=== PATIENT | male | born 1960 | race Caucasian/White ===

== ENCOUNTER → 2016-09-09 | Outpatient (REF) | payer BC | LOC: M LAB REF 12:14 | PROVIDERS: ATTEND Physician Assistant Medical | DX: J02.9 Acute pharyngitis, unspecified (principal) ==

== ENCOUNTER 2017-04-28 09:44 | Inpatient (IN) | payer BC ==
[2017-04-28] VITALS (7 sets, daily range): BP systolic 90–103; BP diastolic 51–55
[2017-04-28] MEDS ORDERED: LORazepam 2 MG/ML VIAL (J2060) IV STA ×2 (09:54→15:22)
[2017-04-28] MEDS ORDERED: NS 1,000 ML IV ONE ×3 (10:00→12:00)
[2017-04-28 10:33] LABS: BASO # 0.1 10^3/uL (0.0-0.2); BASO % 0.4 % (0.0-1.0); EOS # 0.1 10^3/uL (0.0-0.50); EOS % 0.4 % (0.0-3.0); IMMATURE GRANULOCYTE % 2.1 % (0-0); LYMPH # 2.2 10^3/uL (1.5-4.5); LYMPH % 11.4 % (24.0-44.0); MEAN CORPUSCULAR HEMOGLOBIN 32.3 pg (27.0-33.0); MEAN CORPUSCULAR HGB CONC 28.5 g/dl (32.0-36.5); MEAN CORPUSCULAR VOLUME 113.3 fl (80.0-96.0); MONO # 1.1 10^3/uL (0.0-0.8); MONO % 5.8 % (0.0-5.0); NEUTROPHILS # 15.3 10^3/uL (1.8-7.7); NEUTROPHILS % 79.9 % (36.0-66.0); PLATELET COUNT, AUTOMATED 237 10^3/uL (150-450); RED CELL DISTRIBUTION WIDTH 12.2 % (11.5-14.5); WHITE BLOOD COUNT 19.1 10^3/uL (4.0-10.0)
[2017-04-28 10:38] LABS: ABG BASE EXCESS -28.4 (-2.0-2.0); ABG HCO3 2.9 MEQ/L (22.0-26.0); ABG PARTIAL PRESSURE O2 123.8 mmHg (75.0-100.0); ABG STANDARD HCO3 5.6 MEQ/L (22.0-26.0); ABG TOTAL CO2 3.3 MEQ/L (22.0-29.0)
[2017-04-28 10:43] LABS: VENOUS BASE EXCESS -29.7 (-2.0-2.0); VENOUS O2 SATURATION 76.2 % (60.0-80.0); VENOUS PARTIAL PRESSURE CO2 34.1 mmHg (38.0-50.0); VENOUS PARTIAL PRESSURE O2 55.9 mmHg (30.0-50.0); VENOUS STANDARD HCO3 4.8 MEQ/L
[2017-04-28 10:44] LABS: ABG PARTIAL PRESSURE CO2 14.6 mmHg (35.0-45.0); ABG pH (ARTERIAL) 6.913 UNITS (7.350-7.450)
[2017-04-28] MEDS ORDERED: INSULIN IV RATE CHANGE DOCUMENTATION ML/HR XX SCH (11:00)
[2017-04-28] MEDS ORDERED: HumuLIN R (REGULAR) INSULIN (NovoLIN R) **100U/ML** PER UNIT IV ONE (11:00)
[2017-04-28] MEDS: INSULIN HUMAN REGULAR 100 UNITS in NS 99 ML IV SCH ×2 (11:03→21:34)
[2017-04-28 11:09] LABS: ALBUMIN 3.2 GM/DL (3.2-5.2); ALKALINE PHOSPHATASE 108 U/L (45-117); ALT/SGPT 21 U/L (12-78); ANION GAP 34 MEQ/L (8-16); AST/SGOT 24 U/L (7-37); BILIRUBIN,DIRECT 0.1 MG/DL (0.0-0.2); BILIRUBIN,TOTAL 0.4 MG/DL (0.2-1.0); BLOOD UREA NITROGEN 49 MG/DL (7-18); CALCIUM LEVEL 8.2 MG/DL (8.5-10.1); CARBON DIOXIDE LEVEL 7 MEQ/L (21-32); CHLORIDE LEVEL 82 MEQ/L (98-107); CREATININE FOR GFR 3.04 MG/DL (0.70-1.30); GLOMERULAR FILTRATION RATE 22.8 (>56); SODIUM LEVEL 123 MEQ/L (136-145); TOTAL PROTEIN 6.1 GM/DL (6.4-8.2)
[2017-04-28] MEDS ORDERED: METAL LOCK LOOP XX ONE (11:16)
[2017-04-28 11:21] LABS: METHADONE URINE NEGATIVE (NEGATIVE)
--- NOTE | 2017-04-28 11:29 | REP ---
AP PORTABLE CHEST: 04/28/2017. Clinical history: Altered mental status. Comparison: CXR 09/24/2012, portable chest 09/09/2012. Findings: Lungs are hypoinflated. There is crowded markings in the bases with atelectasis and/or patchy infiltrates. Effusions are difficult to exclude. The heart size is magnified by low level of inflation and portable technique. Vascular engorgement may be magnified by portable technique. Venous hypertension difficult to exclude. Airway and aorta grossly intact. Bones intact. No free air. Impression: 1. Hypoinflated chest with bibasilar atelectasis or patchy infiltrates. Small effusion is not excluded. The low level of inflation magnifies heart size and crowds markings and vessels. No pedro edema. Signed by Antoni Skinner MD 04/28/2017 01:11 P
[2017-04-28 11:41] LABS: GLUCOSE, FASTING 1130 MG/DL (70-105); POTASSIUM SERUM 6.9 MEQ/L (3.5-5.1)
[2017-04-28] MEDS ORDERED: INSUHUMDS SC (11:47)
[2017-04-28] MEDS ORDERED: PATIENT COMMENT (11:49)
--- NOTE | 2017-04-28 11:53 | REP ---
CT Head without contrast HISTORY: Altered mental status COMPARISON: MR 09/09/2012 There is no intraparenchymal hemorrhage, acute infarct, mass or midline shift. The ventricular system and cortical sulci are dilated consistent with minimal volume loss. There is no extra cerebral collection. There is no fracture. Mucosal thickening is present in the ethmoid sinuses. IMPRESSION: Minimal volume loss. Signed by Davey Gomez MD 04/28/2017 11:45 A
[2017-04-28] MEDS ORDERED: CALCIUM CHLORIDE 10% 1 GM in D5W 100 ML IV ONE (12:00)
[2017-04-28] MEDS ORDERED: DILUENT IV ONE (12:30)
[2017-04-28] MEDS ORDERED: NS IV ONE (12:30)
[2017-04-28] MEDS ORDERED: CEFEPIME HCL 2 GM in D5W 50 ML IV ONE (12:30)
[2017-04-28] MEDS: NS 1,000 ML IV SCH ×2 (12:40→17:47)
[2017-04-28 13:07] LABS: AMYLASE 25 U/L (25-115)
[2017-04-28] MEDS: HEPARIN SOD (PORCINE) 5000 UNITS/ML VIAL SC SCH ×2 (14:00→21:33)
[2017-04-28 14:27] LABS: INR 1.33
[2017-04-28 14:37] LABS: CALCIUM LEVEL 10.5 MG/DL (8.5-10.1); CREATININE FOR GFR 3.16 MG/DL (0.70-1.30); GLOMERULAR FILTRATION RATE 21.8 (>56); PHOSPHORUS LEVEL 8.5 MG/DL (2.5-4.9)
[2017-04-28 14:38] LABS: POTASSIUM SERUM 5.3 MEQ/L (3.5-5.1)
[2017-04-28 14:51] LABS: ABG BASE EXCESS -24.7 (-2.0-2.0); ABG HCO3 4.8 MEQ/L (22.0-26.0); ABG STANDARD HCO3 7.2 MEQ/L (22.0-26.0); ABG TOTAL CO2 5.4 MEQ/L (22.0-29.0)
[2017-04-28 14:53] LABS: ABG pH (ARTERIAL) 7.015 UNITS (7.350-7.450)
[2017-04-28 14:54] LABS: ABG PARTIAL PRESSURE CO2 19.1 mmHg (35.0-45.0)
[2017-04-28] MEDS: INSULIN IV RATE CHANGE DOCUMENTATION ML/HR XX SCH ×4 (15:00→23:24)
[2017-04-28] MEDS: PIPERACILLIN/TAZOBACTAM SOD 3.375 GM in D5W 50 ML IV SCH ×2 (15:43→23:59)
[2017-04-28 16:11] LABS: CREATININE FOR GFR 2.9 MG/DL (0.70-1.30); GLOMERULAR FILTRATION RATE 24.1 (>56); POTASSIUM SERUM 4.9 MEQ/L (3.5-5.1)
--- NOTE | 2017-04-28 16:15 | REP ---
AP PORTABLE CHEST: 04/28/2017 at 02:43 PM. Clinical history: Central line placement. Findings: There is now a right jugular central venous catheter with tip in the SVC. Lungs are hypoinflated. Heart is enlarged. There is vascular congestion. No abnormal widening of the mediastinum. Compared to the earlier study today, there is better inflation and less basilar crowding of markings and atelectasis. Signed by Antoni Skinner MD 04/28/2017 05:05 P
[2017-04-28 16:30] LABS: CALCIUM LEVEL 7.7 MG/DL (8.5-10.1)
--- NOTE | 2017-04-28 16:45 | HPE ---
DATE OF ADMISSION: 04/28/2017 This is a patient of unknown primary provider. SUBSTANCE ABUSE RN: Dr. Fatimah Baker REASON FOR PRESENTATION: Not acting normally. The history is obtained from his girlfriend, Freda, and his mother, Santo, who are at bedside this morning. The patient was last seen by his mother on Thursday. He was acting normally in [employer]. He was texting with his girlfriend on Thursday evening. On Thursday, he stayed home from work but he did not let his girlfriend know why. Later in the day, his girlfriend was texting him without reply. At around 10:00 p.m. last evening, Freda, his girlfriend went to visit him and found him on the kitchen floor. He was moaning. He recognized his girlfriend. She helped him up off the floor, got him a drink of water, helped him walk into the living room, to the bathroom after the second drink of water and vomited. He came back and laid on the couch. He was rolling back and forth. He felt as though he had to use the bathroom but was unable to successfully get to the bathroom. She asked if he wanted to go upstairs and he said no. Freda went to feed the cats and then he made his way upstairs and was laying on the bed. Sometime between 4:30 and 5:00 on Thursday which is today 04/28/2017, he started groaning. He had grunting respirations. He said he was breathing worse and he wanted to go to the bathroom. He eventually relented and he came to the hospital as the patient did not want to seek medical assistance. He did vomit once over the course of the evening. He has had a small cough. He had no diarrhea. He did not complain of any pain or chest pain. Review of systems is not meaningfully obtainable at this point. We do not know his current medications, although he is on an insulin pump. PAST MEDICAL HISTORY: Obtained from the electronic medical record which includes: 1. Type 1 diabetes. 2. Triglycerides. 3. Goiter. 4. Hiatal hernia. 5. History of cardiac catheterization in 2004 which was within normal limits. 6. Vitamin D deficiency. 7. 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 8. He had endoscopic sinus surgery with Dr. Ford most likely related to that mass. 9. Hypertension. ALLERGIES: No known drug allergies as of May of 2016. PAST SURGICAL HISTORY: Notable for: 1. Cardiac catheterization. 2. Esophagogastroduodenoscopy (EGD). 3. Bilateral endoscopic maxillary surgery. 4. Endoscopic right frontal sinusotomy using balloon. 5. Sinuplasty. FAMILY HISTORY: Father is with a history of diabetes and myocardial infarction. Mother is alive with skin cancer. SOCIAL HISTORY: He is a former smoker. He does use alcohol. 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 PHYSICAL EXAMINATION: Blood pressure systolic has been as low as 82, most recently is 109 on my examination. Most recent totally recorded blood pressure in the computer is 93/42. Heart rate is 100, respiratory rate is 24. He is moving all four extremities. He is not following commands. Pupils are equally round and reactive, anicteric, noninjected. Nasal septum is midline. He does not open his mouth. Sinuses are nontender. Neck is supple. No cervical or supraclavicular adenopathy. Breathing is symmetrical, diminished throughout. I:E ratio is 1:3. Radial pulses are 2+, capillary refill is two seconds. His extremities are cool, feet greater than hands. He was initially hypothermic. Temperature 93.6. There is no recent temperature recorded in the computer but he is warm to touch on the core. He has a Cordova catheter in place. Abdomen is soft, doughy, nontender. There is no lower extremity edema. LABORATORY DATA: Urine cultures pending. Blood cultures pending. White cell count 19.1, hemoglobin 12.9, platelets 237, 79% neutrophils. Sodium is 123, potassium 6.9, chloride 82, carbon dioxide is 7, anion gap is 34, BUN is 49, creatinine 3.04, fasting glucose is 1130, lactic acid is 6.3, CK is 633, troponin I is 0.2, total protein 6.1, TSH 1.49. UA is negative nitrite, negative leukocyte esterase, 1 white cell, 3+ glucose, 1+ ketones, 2+ blood. Toxicology screen is notable for a salicylate level of 4.5, Tylenol level 3.9, alcohol level undetectably low, other toxicology screen thus far negative. Chest x-ray shows hypoinflation with bibasilar atelectasis or patchy infiltrates. Head CT shows minimal volume loss. EKG shows right bundle branch block and atrial fibrillation with rapid ventricular response. ASSESSMENT: This is a 57-year-old with diabetic ketoacidosis who will require intensive care unit (ICU) care and at least a two midnight hospital stay. PLAN: 1. Endocrine. The patient has been started on an insulin drip. He has received between two and three liters of fluid in the form of normal saline at this point. Blood pressure is trending upwards slightly. We will follow serial basic metabolic panels (BMPs) and adjust his insulin drip with every one hour fingersticks. We will continue with normal saline at this point. We will transition to D5 half normal as fingerstick allows. We will need to follow his potassium which is currently elevated but will likely trend downward. He has received calcium already. We will check a phosphate level. His hyponatremia is likely pseudohyponatremia. Underlying infectious etiology is considered and Zosyn has been ordered empirically. The patient has a profound acidosis and could potentially receive bicarbonate, although at this point he has been partially resuscitated. It would be reasonable to recheck an arterial blood gas (ABG) to further guide our process. 2. The patient has acute renal failure and rhabdomyolysis, most likely from being found down and in the setting of dehydration for diabetic ketoacidosis (DKA). We will monitor his renal function. No role for nephrology consultation at this point but we may need a paper tube cutter if he does not improve. 3. The patient has elevated troponin, again most likely related from his extreme metabolic situation. He does also have right bundle branch block and new onset atrial fibrillation. There is no role for anticoagulation at this time and we will treat the underlying illness and cycle troponins. 4. Deep vein thrombosis (DVT) and gastrointestinal (GI) prophylaxis are ordered for this patient. 5. The patient has metabolic encephalopathy, most likely related to his metabolic derangement.
[2017-04-28 17:01] LABS: CALCIUM LEVEL 7.8 MG/DL (8.5-10.1); CREATININE FOR GFR 2.89 MG/DL (0.70-1.30); GLOMERULAR FILTRATION RATE 24.2 (>56); POTASSIUM SERUM 5.1 MEQ/L (3.5-5.1)
[2017-04-28 19:24] LABS: CALCIUM LEVEL 7.9 MG/DL (8.5-10.1); CREATININE FOR GFR 2.73 MG/DL (0.70-1.30); GLOMERULAR FILTRATION RATE 25.8 (>56); POTASSIUM SERUM 4.5 MEQ/L (3.5-5.1)
--- NOTE | 2017-04-28 21:23 | RO ---
DATE OF PROCEDURE: 04/28/2017 PREPROCEDURE DIAGNOSES: Diabetic ketoacidosis (DKA). Poor venous access. Hypotension. POSTPROCEDURE DIAGNOSES: Hypotension. DKA. Poor venous access. OPERATIVE PROCEDURE: tripple lumen centra line right IJ SURGEON: Neha Carrasco MD BROOM MACHINE OPERATOR: Danay Yancey DO, registered nurse Clarissa. SEDATION: 2 mg of IV Ativan was given. ANESTHESIA: 1% local lidocaine. ESTIMATED BLOOD LOSS: 10 mL VENTILATION: None. DESCRIPTION OF PROCEDURE: Risks were discussed with the patient's family. The patient was altered and consent was obtained from family. Time out was done. Patient was placed in supine position and site was cleaned with Chloraprep. The patient was covered in a sterile manner. Ultrasound probe with sterile probe cover was used. The patient's right internal jugular was located. Subcutaneous lidocaine was injected. Subsequently, needle was inserted with ultrasound guidance. Flash of blood was obtained. Wire was threaded through the needle and needle was removed. Wire position was confirmed with ultrasound. Site was dilated and triple lumen central line was inserted via Seldinger technique over a guidewire. Guidewire was removed and all three ports of the central line were flushed with normal saline and clamped. Triple lumen central line was secured with clamps and stitches. Tegaderm dressing was placed. The patient tolerated the procedure with no complication. X-ray was ordered for confirmation. THOMAS
[2017-04-28 21:26] LABS: CALCIUM LEVEL 7.8 MG/DL (8.5-10.1); CREATININE FOR GFR 2.49 MG/DL (0.70-1.30); GLOMERULAR FILTRATION RATE 28.7 (>56); POTASSIUM SERUM 4.6 MEQ/L (3.5-5.1)
[2017-04-28] MEDS: PANTOPRAZOLE 40MG INJ (PROTONIX) (C9113) IV SCH (21:32)
[2017-04-28] MEDS ORDERED: INSULIN HUMAN REGULAR 100 UNITS in NS 99 ML IV SCH ×5 (23:00)
[2017-04-29] VITALS (19 sets, daily range): BP systolic 84–114; BP diastolic 44–71
[2017-04-29 00:22] LABS: CALCIUM LEVEL 7.6 MG/DL (8.5-10.1); CREATININE FOR GFR 2.41 MG/DL (0.70-1.30); GLOMERULAR FILTRATION RATE 29.8 (>56); POTASSIUM SERUM 4.4 MEQ/L (3.5-5.1)
[2017-04-29 01:46] LABS: CALCIUM LEVEL 7.6 MG/DL (8.5-10.1); CREATININE FOR GFR 2.31 MG/DL (0.70-1.30); GLOMERULAR FILTRATION RATE 31.3 (>56); POTASSIUM SERUM 4.6 MEQ/L (3.5-5.1)
[2017-04-29] MEDS: NS 1,000 ML IV SCH (02:07)
[2017-04-29 03:51] LABS: CALCIUM LEVEL 7.7 MG/DL (8.5-10.1); CREATININE FOR GFR 2.28 MG/DL (0.70-1.30); GLOMERULAR FILTRATION RATE 31.8 (>56); POTASSIUM SERUM 4.7 MEQ/L (3.5-5.1)
[2017-04-29 05:10] LABS: MEAN CORPUSCULAR HEMOGLOBIN 32.6 pg (27.0-33.0); MEAN CORPUSCULAR HGB CONC 35.1 g/dl (32.0-36.5); MEAN CORPUSCULAR VOLUME 92.8 fl (80.0-96.0); RED CELL DISTRIBUTION WIDTH 11.9 % (11.5-14.5); WHITE BLOOD COUNT 7.3 10^3/uL (4.0-10.0)
[2017-04-29 05:33] LABS: ALBUMIN 2.4 GM/DL (3.2-5.2); BILIRUBIN,TOTAL 0.4 MG/DL (0.2-1.0); CALCIUM LEVEL 7.6 MG/DL (8.5-10.1); CREATININE FOR GFR 2.16 MG/DL (0.70-1.30); GLOMERULAR FILTRATION RATE 33.8 (>56); MAGNESIUM LEVEL 2.3 MG/DL (1.8-2.4); POTASSIUM SERUM 4.6 MEQ/L (3.5-5.1); TOTAL PROTEIN 4.8 GM/DL (6.4-8.2)
[2017-04-29 05:36] LABS: ADD MANUAL DIFFER YES; DIFF SLIDE NUMBER 92; LEFT SHIFT POS FLAG; PLATELET COUNT, AUTOMATED 106 10^3/uL (150-450); POSITIVE MORPH POS FLAG
[2017-04-29] MEDS: HEPARIN SOD (PORCINE) 5000 UNITS/ML VIAL SC SCH (06:00)
[2017-04-29 07:46] LABS: CALCIUM LEVEL 7.7 MG/DL (8.5-10.1); CREATININE FOR GFR 2.03 MG/DL (0.70-1.30); GLOMERULAR FILTRATION RATE 36.3 (>56); POTASSIUM SERUM 4.5 MEQ/L (3.5-5.1)
--- NOTE | 2017-04-29 08:25 | IPNPDOC ---
Subjective Date Seen The patient was seen on 04/29/17. Subjective Chief Complaint/HPI The patient is a 57-year-old male admitted with a reason for visit of Diabetic Ketoacidoses. Events since last encounter Girlfriend at bedside. Patient continues with minimal responsiveness, thrashing in bed, grunting. GF admits to patient having hx of heavy ETOH use: beer then proceeds to drinking wine and beer. GF unable to quantify amount of ETOH Consumed gilles a daily basis. States is a mostly daily drinker. Heavier drinking noted on the weekends. Also notes patient with ataxic gait, usually on the left side with tremor. Worse when fatigued. Unable to proceed with testing due to cost/insurance coverage. General: Reports: ROS Unobtainable Objective Physical Examination General Exam: Positive: Mild Distress, Other (diaphoretic, grunting, groaning) , Negative: Alert ENT Exam: Positive: Atraumatic, Mucous membr. moist/pink, Pharynx Normal Neck Exam: Positive: Supple, Negative: JVD, thyromegaly Chest Exam: Positive: Clear to auscultation, Normal air movement Heart Exam: Positive: Rate Normal, Regular Rhythm, Normal S1, Normal S2, Negative: Murmurs, Rubs Telemetry: Positive: No significant arrhythmia Abdomen Exam: Positive: Normal bowel sounds, Soft, Negative: Tenderness, Hepatospenomegaly Extremity Exam: Negative: Edema Skin Exam: Positive: Nl turgor and temperature, Negative: Rash, Breakdown Psych Exam: Negative: Oriented x 3 Assessment /Plan Problems (1) DKA (diabetic ketoacidoses) Status: Acute Response to Treatment: Improving Problem Text: Currently on Insulin drip. Blood sugar close to 200 range. Patient's mentation not improving. Concerning for other etiology. BMPs q 2 hrs. Anion Gap has normalized. (2) Metabolic encephalopathy Status: Acute Problem Text: related to DKA and potential alcoholic encephalopathy. Ammonia level and INR ordered. IV hydration with Thiamine and MVI. Unable to complete MRI due to patient's inability to follow commands. EEG ordered. (3) Alcohol abuse Status: Acute Problem Text: Thiamin and MVI IV ordered. Ativan prn agitation/withdrawal symptoms. CIWA protocol (4) Elevated troponin Status: Acute Problem Text: Troponin noted 2.45 over night. Repeat this am 2.1. Cardiology consulted. EKG completed this am Echo completed 04/28/17: EF 70% no valvular d/o. (5) Acute renal failure Status: Acute Problem Text: Creatinine improved to 2.0 this am. Urine output is adequate. (6) Tremor Problem Text: documented tremor disorder by Endocrinology in outpatient notes. Patients GF notes LEFT sided tremor and describes contracture. Also causes unsteady gait. worse when patient is fatigued. Will consider MRI when patient is able to proceed. Plan/VTE VTE Prophylaxis Ordered?: No (INR 1.33 on admission, HOLD on anti-coag until repeat INR TEDS/SCDs) VS, I&O, 24H, Fishbone Vital Signs/I&O Vital Signs Date Time Temp Pulse Resp B/P (MAP) Pulse Ox O2 Delivery O2 Flow Rate FiO2 04/29/17 04:00 98.7 101 18 91/55 (67) 97 Room Air Laboratory Data 24H LABS Laboratory Tests 2 04/28/17 09:51: Bedside Glucose (Misc Panel) > 600*H 04/28/17 10:04: Blood Gas Bicarbonate Standard 5.6L, Arterial Blood pH 6.913*L, Arterial Blood Partial Pressure CO2 14.6*L, Arterial Blood Partial Pressure O2 123.8H, Arterial Blood Total CO2 3.3L, Arterial Blood HCO3 2.9L, Arterial Blood Base Excess -28.4L, Arterial Blood Oxygen Saturation 97.6 04/28/17 10:26: Blood Gas Bicarbonate Standard 4.8, Immature Granulocyte % (Auto) 2.1H, White Blood Count 19.1H, Red Blood Count 3.99L, Hemoglobin 12.9L, Hematocrit 45.2, Mean Corpuscular Volume 113.3H, Mean Corpuscular Hemoglobin 32.3, Mean Corpuscular Hemoglobin Concent 28.5L, Red Cell Distribution Width 12.2, Platelet Count 237, Neutrophils (%) (Auto) 79.9H, Lymphocytes (%) (Auto) 11.4L, Monocytes (%) (Auto) 5.8H, Eosinophils (%) (Auto) 0.4, Basophils (%) (Auto) 0.4 , Neutrophils # (Auto) 15.3H, Lymphocytes # (Auto) 2.2, Monocytes # (Auto) 1.1H , Eosinophils # (Auto) 0.1, Basophils # (Auto) 0.1, Immature Granulocyte # (Auto ) 0.4H, Nucleated Red Blood Cells % (auto) 0.1H, Venous Blood pH 6.779L, Venous Blood Partial Pressure CO2 34.1L, Venous Blood Partial Pressure O2 55.9H, Venous Blood Total Carbon Dioxide 6.0L, Venous Blood HCO3 4.9L, Venous Blood Oxygen Saturation 76.2, Venous Blood Base Excess -29.7L, Anion Gap 34H, Glomerular Filtration Rate 22.8L, Estimated Mean Plasma Glucose 186H, Hemoglobin A1c 8.1, Calcium Level 8.2L, Aspartate Amino Transf (AST/SGOT) 24, Alanine Aminotransferase (ALT/SGPT) 21, Alkaline Phosphatase 108, Total Bilirubin 0.4, Direct Bilirubin 0.1, Total Creatine Kinase 633H, Creatine Kinase MB 16.2H, Creatine Kinase MB Relative Index 2.55, Troponin I 0.20H, C- Reactive Protein, Quantitative 6.72H, Total Protein 6.1L, Albumin 3.2, Albumin/ Globulin Ratio 1.10, Amylase Level 25, Thyroid Stimulating Hormone (TSH) 1.490, Salicylates Level 4.5L, Acetaminophen Level 3.9L, Ethyl Alcohol Level < 0.003 04/28/17 10:47: Urine Appearance CLEAR, Urine Color STRAW, Urine pH 5.0, Urine Specific [place] 1.017, Urine Protein NEGATIVE, Urine Glucose (UA) 3+H, Urine Ketones 1+H, Urine Urobilinogen 0.2, Urine Bilirubin NEGATIVE, Urine Leukocyte Esterase NEGATIVE, Urine Blood 2+H, Urine Nitrite NEGATIVE, Urine WBC (Auto) 1, Urine RBC (Auto) 0 , Urine Hyaline Casts (Auto) 1, Urine Bacteria (Auto) NEGATIVE, Urine Squamous Epithelial Cells 0, Urine Mucus (Auto) SMALL, Urine Sperm (Auto) , Urine Amphetamines Screen NEGATIVE, Urine Benzodiazepines Screen NEGATIVE, Urine Opiates Screen NEGATIVE, Urine Methadone Screen NEGATIVE, Urine Barbiturates Screen NEGATIVE, Urine Phencyclidine Screen NEGATIVE, Urine Cocaine Metabolite Screen NEGATIVE, Urine Cannabinoids Screen NEGATIVE 04/28/17 11:36: Lactic Acid Level 6.3*H 04/28/17 11:41: Bedside Glucose (Misc Panel) > 600*H 04/28/17 12:22: Bedside Glucose (Misc Panel) > 600*H 04/28/17 13:49: Bedside Glucose (Misc Panel) > 600*H 04/28/17 14:01: Anion Gap 28H, Glomerular Filtration Rate 21.8L, Blood Urea Nitrogen 51H, Creatinine 3.16H, Sodium Level 126L, Potassium Level 5.3H, Chloride Level 91L, Carbon Dioxide Level 7L, Calcium Level 10.5#H, Phosphorus Level 8.5H, Lipase 207 04/28/17 14:02: Prothrombin Time 16.7H, Prothromb Time International Ratio 1.33, Activated Partial Thromboplast Time 33.1, Osmolality 342H 04/28/17 14:39: Blood Gas Bicarbonate Standard 7.2L, Arterial Blood pH 7.015*L, Arterial Blood Partial Pressure CO2 19.1*L, Arterial Blood Partial Pressure O2 104.0H, Arterial Blood Total CO2 5.4L, Arterial Blood HCO3 4.8L, Arterial Blood Base Excess -24.7L, Arterial Blood Oxygen Saturation 97.0 04/28/17 15:28: Anion Gap 25H, Glomerular Filtration Rate 24.1L, Blood Urea Nitrogen 50H, Creatinine 2.90H, Sodium Level 130L, Potassium Level 4.9, Chloride Level 96L, Carbon Dioxide Level 9L, Calcium Level 7.7#L, Total Creatine Kinase 1246#H, Creatine Kinase MB 35.2H, Creatine Kinase MB Relative Index 2.82, Troponin I 0.41#H 04/28/17 15:29: Bedside Glucose (Misc Panel) 582*H 04/28/17 16:26: Anion Gap 23H, Glomerular Filtration Rate 24.2L, Blood Urea Nitrogen 51H, Creatinine 2.89H, Sodium Level 130L, Potassium Level 5.1, Chloride Level 97L, Carbon Dioxide Level 10L, Calcium Level 7.8L 04/28/17 17:21: Bedside Glucose (Misc Panel) 545*H 04/28/17 18:12: Bedside Glucose (Misc Panel) 517*H 04/28/17 18:51: Anion Gap 18H, Glomerular Filtration Rate 25.8L, Lactic Acid Level 2.0, Blood Urea Nitrogen 50H, Creatinine 2.73H, Sodium Level 133L, Potassium Level 4.5, Chloride Level 101, Carbon Dioxide Level 14L, Calcium Level 7.9L 04/28/17 19:25: Bedside Glucose (Misc Panel) 492H 04/28/17 20:19: Bedside Glucose (Misc Panel) 464H 04/28/17 20:53: Anion Gap 14, Glomerular Filtration Rate 28.7L, Blood Urea Nitrogen 48H, Creatinine 2.49H, Sodium Level 135L, Potassium Level 4.6, Chloride Level 103, Carbon Dioxide Level 18L, Calcium Level 7.8L 04/28/17 22:17: Bedside Glucose (Misc Panel) 352H 04/28/17 23:13: Anion Gap 10, Glomerular Filtration Rate 29.8L, Blood Urea Nitrogen 48H, Creatinine 2.41H, Sodium Level 136, Potassium Level 4.4, Chloride Level 106, Carbon Dioxide Level 20L, Calcium Level 7.6L, Total Creatine Kinase 1531H, Creatine Kinase MB 50.2H, Creatine Kinase MB Relative Index 3.27, Troponin I 2.54#*H 04/28/17 23:17: Bedside Glucose (Misc Panel) 289H 04/29/17 00:23: Bedside Glucose (Misc Panel) 287H 04/29/17 01:08: Bedside Glucose (Misc Panel) 288H, Anion Gap 10, Glomerular Filtration Rate 31.3L, Blood Urea Nitrogen 47H, Creatinine 2.31H, Sodium Level 137, Potassium Level 4.6, Chloride Level 106, Carbon Dioxide Level 21, Calcium Level 7.6L 04/29/17 02:03: Bedside Glucose (Misc Panel) 257H 04/29/17 03:07: Anion Gap 10, Glomerular Filtration Rate 31.8L, Blood Urea Nitrogen 48H, Creatinine 2.28H, Sodium Level 138, Potassium Level 4.7, Chloride Level 106, Carbon Dioxide Level 22, Calcium Level 7.7L 04/29/17 03:09: Bedside Glucose (Misc Panel) 272H 04/29/17 04:55: Nucleated Red Blood Cells % (auto) 0.0, Neutrophils 83H, Lymphocytes (Manual) 6L , Monocytes (Manual) 10H, Atypical Lymphocytes 1, Platelet Estimate DECREASED, Red Blood Cell Morphology NORMAL, Anion Gap 9, Glomerular Filtration Rate 33.8L , Blood Urea Nitrogen 47H, Creatinine 2.16H, Sodium Level 139, Potassium Level 4.6, Chloride Level 108H, Carbon Dioxide Level 22, Calcium Level 7.6L, Aspartate Amino Transf (AST/SGOT) 71H, Alanine Aminotransferase (ALT/SGPT) 24, Alkaline Phosphatase 69, Total Bilirubin 0.4, Total Protein 4.8#L, Albumin 2.4#L , Magnesium Level 2.3, Albumin/Globulin Ratio 1.00 04/29/17 05:01: Bedside Glucose (Misc Panel) 279H 04/29/17 05:54: Bedside Glucose (Misc Panel) 217H 04/29/17 06:44: Anion Gap 10, Glomerular Filtration Rate 36.3L, Blood Urea Nitrogen 46H, Creatinine 2.03H, Sodium Level 140, Potassium Level 4.5, Chloride Level 109H, Carbon Dioxide Level 21, Calcium Level 7.7L, Total Creatine Kinase 1433H, Creatine Kinase MB 38.7H, Creatine Kinase MB Relative Index 2.70, Troponin I 2.14*H 04/29/17 06:45: Bedside Glucose (Misc Panel) 242H CBC/BMP Laboratory Tests 04/28/17 10:26 Red Blood Count 3.99 L, Mean Corpuscular Volume 113.3 H, Mean Corpuscular Hemoglobin 32.3, Mean Corpuscular Hemoglobin Concent 28.5 L, Red Cell Distribution Width 12.2, Neutrophils (%) (Auto) 79.9 H, Lymphocytes (%) (Auto) 11.4 L, Monocytes (%) (Auto) 5.8 H, Eosinophils (%) (Auto) 0.4, Basophils (%) ( Auto) 0.4, Neutrophils # (Auto) 15.3 H, Lymphocytes # (Auto) 2.2, Monocytes # ( Auto) 1.1 H, Eosinophils # (Auto) 0.1, Basophils # (Auto) 0.1 04/28/17 14:01 Calcium Level 10.5 #H 04/28/17 15:28 Calcium Level 7.7 #L, Total Creatine Kinase 1246 #H 04/28/17 16:26 Calcium Level 7.8 L 04/28/17 18:51 Calcium Level 7.9 L 04/28/17 20:53 Calcium Level 7.8 L 04/28/17 23:13 Calcium Level 7.6 L, Total Creatine Kinase 1531 H 04/29/17 01:08 Calcium Level 7.6 L 04/29/17 03:07 Calcium Level 7.7 L 04/29/17 04:55 Calcium Level 7.6 L, Red Blood Count 3.59 L, Mean Corpuscular Volume 92.8, Mean Corpuscular Hemoglobin 32.6, Mean Corpuscular Hemoglobin Concent 35.1, Red Cell Distribution Width 11.9, Aspartate Amino Transf (AST/SGOT) 71 H, Alanine Aminotransferase (ALT/SGPT) 24, Alkaline Phosphatase 69, Total Bilirubin 0.4, Total Protein 4.8 #L, Albumin 2.4 #L 04/29/17 06:44 Calcium Level 7.7 L, Total Creatine Kinase 1433 H Microbiology Microbiology 04/28/17 Blood Culture, Received Pending 04/28/17 Blood Culture, Received Pending 04/28/17 Urine Culture, Received Pending Rama Rodriguez [facility] Apr 29, 2017 08:25
[2017-04-29] MEDS: LORazepam 2 MG/ML VIAL (J2060) IV PRN ×3 (08:53→23:27)
[2017-04-29] MEDS: PIPERACILLIN/TAZOBACTAM SOD 3.375 GM in D5W 50 ML IV SCH ×2 (08:53→16:14)
[2017-04-29] MEDS ORDERED: MVI -ADULT INJECTION 10 ML VIAL IV SCH (09:00)
[2017-04-29] MEDS ORDERED: MULTIVITAMIN -ADULT INJECTION 10 ML in NS 1,000 ML IV SCH (09:00)
[2017-04-29] MEDS: D5W/0.9% SODIUM CHLORIDE 1,000 ML IV SCH ×3 (09:00→09:52)
[2017-04-29] MEDS ORDERED: THIAMINE HCL 200 MG/2 ML VIAL (J3411) IV SCH (09:00)
[2017-04-29] MEDS ORDERED: GLUCAGON FOR INJ 1 MG VIAL (J1610) SC PRN ×2 (09:30)
[2017-04-29] MEDS ORDERED: DEXTROSE 50% 50 ML SYRINGE IV PRN ×2 (09:30)
[2017-04-29] MEDS ORDERED: GLUCOSE 4 GM CHEW TABLET PO PRN ×2 (09:30)
[2017-04-29 09:34] LABS: CALCIUM LEVEL 7.8 MG/DL (8.5-10.1); CREATININE FOR GFR 1.95 MG/DL (0.70-1.30); GLOMERULAR FILTRATION RATE 38.1 (>56); POTASSIUM SERUM 4.3 MEQ/L (3.5-5.1)
[2017-04-29 09:39] LABS: INR 1.13
[2017-04-29] MEDS ORDERED: HumaLOG INSULIN (NovoLOG) PER UNIT SC SCH ×2 (10:00→12:00)
[2017-04-29 11:54] LABS: ABG BASE EXCESS -10.4 (-2.0-2.0); ABG HCO3 13.4 MEQ/L (22.0-26.0); ABG PARTIAL PRESSURE CO2 24.4 mmHg (35.0-45.0); ABG STANDARD HCO3 16.2 MEQ/L (22.0-26.0); ABG TOTAL CO2 14.1 MEQ/L (22.0-29.0); ABG pH (ARTERIAL) 7.356 UNITS (7.350-7.450)
[2017-04-29] MEDS ORDERED: LORazepam 2 MG/ML VIAL (J2060) IV ONE (12:00)
[2017-04-29 12:11] LABS: CREATININE FOR GFR 1.81 MG/DL (0.70-1.30); GLOMERULAR FILTRATION RATE 41.5 (>56); POTASSIUM SERUM 4.9 MEQ/L (3.5-5.1)
--- NOTE | 2017-04-29 12:35 | REP ---
CT Head without contrast HISTORY: Altered mental status COMPARISON: 04/28/2017 There is no intraparenchymal hemorrhage, acute infarct, mass or midline shift. The ventricular system and cortical sulci are dilated consistent with minimal volume loss. There is no extra cerebral collection. There is no fracture. Mucosal thickening is present in the ethmoid maxillary and sphenoid sinuses. IMPRESSION: Minimal volume loss. Signed by Davey Gomez MD 04/29/2017 12:27 P
[2017-04-29 13:36] LABS: CALCIUM LEVEL 7.9 MG/DL (8.5-10.1); CREATININE FOR GFR 1.77 MG/DL (0.70-1.30); GLOMERULAR FILTRATION RATE 42.6 (>56); POTASSIUM SERUM 4.8 MEQ/L (3.5-5.1)
[2017-04-29] MEDS ORDERED: NS 1,000 ML IV SCH (14:00)
[2017-04-29] MEDS ORDERED: NS 500 ML IV ONE (14:00)
[2017-04-29] MEDS: KCL 20MEQ IN D5/0.45NS 1000ML 1,000 ML IV SCH ×3 (15:01→23:27)
[2017-04-29] MEDS ORDERED: KCL 20MEQ IN 100ML SWI (KRUN) 20 MEQ in APPROPRIATE DILUENT 1 EA IV SCH ×2 (15:15)
[2017-04-29] MEDS ORDERED: LORazepam 2 MG/ML VIAL (J2060) IV STA (15:24)
[2017-04-29] MEDS: KCL 20MEQ in NS 1000ML 1,000 ML IV SCH ×2 (16:14→20:01)
[2017-04-29 16:42] LABS: CALCIUM LEVEL 7.6 MG/DL (8.5-10.1); CREATININE FOR GFR 1.77 MG/DL (0.70-1.30); GLOMERULAR FILTRATION RATE 42.6 (>56); POTASSIUM SERUM 4.5 MEQ/L (3.5-5.1)
[2017-04-29] MEDS: INSULIN HUMAN REGULAR 100 UNITS in NS 99 ML IV SCH (16:57)
[2017-04-29] MEDS: INSULIN IV RATE CHANGE DOCUMENTATION ML/HR XX SCH ×3 (17:17→23:23)
[2017-04-29 18:55] LABS: CALCIUM LEVEL 7.5 MG/DL (8.5-10.1); CREATININE FOR GFR 1.74 MG/DL (0.70-1.30); GLOMERULAR FILTRATION RATE 43.4 (>56); POTASSIUM SERUM 4.3 MEQ/L (3.5-5.1)
[2017-04-29] MEDS: PANTOPRAZOLE 40MG INJ (PROTONIX) (C9113) IV SCH (21:15)
[2017-04-29 21:19] LABS: CALCIUM LEVEL 7.5 MG/DL (8.5-10.1); CREATININE FOR GFR 1.73 MG/DL (0.70-1.30); GLOMERULAR FILTRATION RATE 43.7 (>56); POTASSIUM SERUM 4.2 MEQ/L (3.5-5.1)
[2017-04-29 23:48] LABS: CALCIUM LEVEL 7.5 MG/DL (8.5-10.1); CREATININE FOR GFR 1.54 MG/DL (0.70-1.30); POTASSIUM SERUM 4.1 MEQ/L (3.5-5.1)
[2017-04-30] VITALS (18 sets, daily range): BP systolic 83–128; BP diastolic 52–93
[2017-04-30] MEDS: PIPERACILLIN/TAZOBACTAM SOD 3.375 GM in D5W 50 ML IV SCH ×3 (00:16→16:00)
[2017-04-30] MEDS: INSULIN IV RATE CHANGE DOCUMENTATION ML/HR XX SCH ×7 (00:26→18:00)
[2017-04-30 01:08] LABS: CALCIUM LEVEL 7.6 MG/DL (8.5-10.1); CREATININE FOR GFR 1.46 MG/DL (0.70-1.30); GLOMERULAR FILTRATION RATE 53.2 (>56); POTASSIUM SERUM 4.2 MEQ/L (3.5-5.1)
[2017-04-30] MEDS: LORazepam 2 MG/ML VIAL (J2060) IV PRN ×3 (01:42→04:06)
[2017-04-30 02:44] LABS: CALCIUM LEVEL 7.6 MG/DL (8.5-10.1); CREATININE FOR GFR 1.44 MG/DL (0.70-1.30); POTASSIUM SERUM 3.9 MEQ/L (3.5-5.1)
[2017-04-30 04:53] LABS: CALCIUM LEVEL 7.6 MG/DL (8.5-10.1); CREATININE FOR GFR 1.44 MG/DL (0.70-1.30); POTASSIUM SERUM 3.9 MEQ/L (3.5-5.1)
[2017-04-30] MEDS: KCL 20MEQ IN D5/0.45NS 1000ML 1,000 ML IV SCH (06:25)
--- NOTE | 2017-04-30 06:34 | EEG ---
DATE OF PROCEDURE: 04/29/2017 REFERRING PHYSICIAN: Marleen Patel DO DIAGNOSIS: Altered mental status. EEG NUMBER: [id number] HISTORY: Patient is a 57-year-old man who was admitted to [facility] with diabetic ketoacidosis and history of alcohol abuse. This EEG was done to rule out epileptic potential and assess degree of encephalopathy. He is currently on insulin, Zosyn, Ativan, Protonix, thiamine, etc. DESCRIPTION: This digital EEG was recorded by 21 scalp, ear and two EKG electrodes and was reviewed in bipolar and referential montages following reformatting in 10-20 international electrode placement system. INTERPRETATION: The patient was noted to be in awake and drowsy states during this EEG. Resting awake background rhythm consisted of 2-3 Hz delta activity measuring 15 - 20 microvolts in amplitude. No sleep was achieved. Hyperventilation could not be performed. Photic stimulation remained unremarkable. EKG revealed normal sinus rhythm. No focal, lateralizing or epileptiform abnormalities were seen. CONCLUSION: This EEG in awake and drowsy states is abnormal due to presence of generalized slowing and disorganization of background consistent with nonspecific diffuse cerebral dysfunction such as seen in encephalopathy due to multiple potential causes including toxic, metabolic, infectious, medication related, multifocal structural abnormalities of brain. Clinical correlation is recommended.
[2017-04-30 06:42] LABS: EOS % 0.2 % (0.0-3.0); IMMATURE GRANULOCYTE % 0.8 % (0-0); LYMPH # 1.3 10^3/uL (1.5-4.5); LYMPH % 20.9 % (24.0-44.0); MEAN CORPUSCULAR HEMOGLOBIN 32.4 pg (27.0-33.0); MEAN CORPUSCULAR VOLUME 92.4 fl (80.0-96.0); MONO # 0.3 10^3/uL (0.0-0.8); MONO % 5.5 % (0.0-5.0); NEUTROPHILS # 4.4 10^3/uL (1.8-7.7); NEUTROPHILS % 72.6 % (36.0-66.0); RED CELL DISTRIBUTION WIDTH 12.8 % (11.5-14.5)
[2017-04-30 07:00] LABS: ANION GAP 5 MEQ/L (8-16); BLOOD UREA NITROGEN 26 MG/DL (7-18); CALCIUM LEVEL 7.7 MG/DL (8.5-10.1); CARBON DIOXIDE LEVEL 26 MEQ/L (21-32); CHLORIDE LEVEL 117 MEQ/L (98-107); CREATININE FOR GFR 1.29 MG/DL (0.70-1.30); GLOMERULAR FILTRATION RATE > 60.0 (>56); GLUCOSE, FASTING 262 MG/DL (70-105); POTASSIUM SERUM 3.8 MEQ/L (3.5-5.1); SODIUM LEVEL 148 MEQ/L (136-145)
--- NOTE | 2017-04-30 07:01 | ECGEPIP ---
Stationary ECG Study [facility] - ED Test Date: 2017-04-28 Pat Name: NANCY MILLER Department: Room: - Gender: M Rn Neurology: bhavna : 1960 Requested By: Maikel Montenegro Order Number: [id number] Reading MD: Maikel Stanley Measurements Intervals Fiatt Rate: 109 P: PA: 0 QRS: 3 QRSD: 184 T: 23 QT: 338 QTc: 456 Interpretive Statements ATRIAL FIBRILLATION WITH RAPID VENTRICULAR RESPONSE RIGHT BUNDLE BRANCH BLOCK RHYTHM AND CONDUCTION DELAY NEW COMPARED TO 09/24/12 Electronically Signed On 04-30-2017 7:01:08 EST by Maikel Stanley
[2017-04-30 07:04] LABS: ALBUMIN 2.4 GM/DL (3.2-5.2); ALBUMIN/GLOBULIN RATIO 0.96 (1.00-1.93); ALKALINE PHOSPHATASE 67 U/L (45-117); ALT/SGPT 30 U/L (12-78); ANION GAP 6 MEQ/L (8-16); AST/SGOT 63 U/L (7-37); BILIRUBIN,TOTAL 0.6 MG/DL (0.2-1.0); BLOOD UREA NITROGEN 27 MG/DL (7-18); CALCIUM LEVEL 7.7 MG/DL (8.5-10.1); CARBON DIOXIDE LEVEL 26 MEQ/L (21-32); CHLORIDE LEVEL 116 MEQ/L (98-107); CREATININE FOR GFR 1.29 MG/DL (0.70-1.30); GLOMERULAR FILTRATION RATE > 60.0 (>56); GLUCOSE, FASTING 260 MG/DL (70-105); MAGNESIUM LEVEL 2.6 MG/DL (1.8-2.4); POTASSIUM SERUM 3.8 MEQ/L (3.5-5.1); SODIUM LEVEL 148 MEQ/L (136-145); TOTAL PROTEIN 4.9 GM/DL (6.4-8.2)
[2017-04-30 07:17] LABS: PLATELET COUNT, AUTOMATED 84 10^3/uL (150-450)
--- NOTE | 2017-04-30 07:22 | ECHO ---
DATE OF PROCEDURE: 04/29/2017 DATE OF : 1960 AGE: 57 REFERRING PROVIDER: Dr. Pasha Rutledge PATIENT LOCATION: Room 3210 REASON FOR THE ECHOCARDIOGRAM: Sepsis. 2D MEASUREMENTS: IVS: 0.85 cm LV: 4.7 cm LVPW: 1.0 cm LA: 3.3 cm Aorta: 3.2 cm IVC: 2.5 cm DOPPLER MEASUREMENTS: Peak velocity across the aortic valve: 0.93 m/s Peak velocity across the LVOT: 0.80 m/s Mitral E: 0.84 Mitral A: 0.73 Ratio: 1.2 2D COMMENTS: 1. Normal left ventricular size, wall thickness and normal global left ventricular systolic function. The estimated global left ventricular systolic ejection fraction is 60%. 2. Normal left atrium. Normal right atrium and right ventricle. 3. The atrial septum appeared to be normal without evidence of defect or shunt. 4. Normal aortic root. 5. No pericardial effusion seen. 6. The aortic valve, mitral valve, and tricuspid valve appeared to be normal. The pulmonic valve and proximal pulmonary artery branches were not well visualized. 7. The inferior vena cava was mildly enlarged, central venous pressure might be elevated. DOPPLER: No significant valvular abnormalities detected. Assessment of the left ventricular diastolic function appeared to be normal. IMPRESSIONS: 1. Normal global left ventricular systolic and diastolic function. 2. No significant valvular abnormalities detected. 3. Isolated mildly dilated inferior vena cava/IVC. 4. This study was technically limited due to poor acoustic window.
--- NOTE | 2017-04-30 07:48 | REP ---
CT ABDOMEN AND PELVIS WITHOUT CONTRAST: 04/29/2017. Comparison: 12/02/2007. Clinical history: Tender abdomen, DKA. Technique: Scanning through the abdomen and pelvis without oral or IV contrast. Coronal and sagittal reconstructions are performed. The arms are folded across the upper abdomen with spray artifact from the forearms and hands somewhat limiting the examination. Findings: CT abdomen: Lung bases show bilateral pleural effusions. There is dependent atelectatic change in the lower lung zones without dense consolidation with air bronchograms. Some underlying minor fibrotic changes are seen. Heart is mildly enlarged. There is no pericardial thickening or effusion. Small hiatal hernia suspected. Liver shows no gross evidence of a mass, biliary dilatation, cyst or perihepatic ascites. Gallbladder without calcified stone or mass. There is no splenomegaly or focal splenic lesion. Adrenal glands are normal. Pancreas shows no mass. There is slight atrophy of the body and tail of the pancreas. No abnormal calcifications. No inflammatory changes or fluid collections adjacent. Kidneys show no stone, mass, cyst, hydronephrosis or perinephric fluid. The aorta has atherosclerotic calcifications without aneurysm and no periaortic adenopathy. No retroperitoneal or mesenteric adenopathy of pathologic size. Small bowel loops grossly intact. Lung window review of all CT slices abdomen and pelvis show no sign of perforation, abscess or free air or ptosis. No air in the kidneys or collecting systems. The bone windows show lumbar and lower thoracic spine with some degenerative changes without compression fracture. Marginal osteophytes are present. Visualized ribs grossly intact. CT pelvis: Sacrum, SI joints, pelvis, hips show degenerative changes without destructive lesion or fracture. Pubic rami and symphysis pubis intact. There is no ventral or inguinal hernia. No pathologic sized inguinal adenopathy. Cordova catheter balloon is seen inflated in the bladder with the bladder empty. There is an air bubble in the dome of the bladder, likely related to Cordova catheter insertion. I do not see any compelling CT evidence for colovesical fistula. No pelvic ascites or thickening of the lateral coronal fascia. The colon from cecum to sigmoid shows no sign of colitis, diverticulitis, stricture or mass. A few scattered diverticula seen. The rectum is not distended and shows no wall thickening or mass. Small bowel loops in the pelvis are intact. The prostate is not grossly enlarged. Seminal vesicles unremarkable. Impression: 1. Bilateral pleural effusions and basilar atelectatic changes right greater than left. No dense consolidation with air bronchograms, no mass. 2. Heart mildly prominent. No pericardial thickening or effusion. Small hiatal hernia. 3. The liver spleen, gallbladder, pancreas and adrenal glands without acute finding. No ascites. No calcified gallstones. 4. Cordova catheter balloon in the bladder with the bladder empty and small air collection in the bladder, likely related to Cordova insertion. No colovesical fistula. 5. No colitis, diverticulitis, stricture or mass. Small bowel loops intact. No ascites, abscess, adenopathy or other acute finding. 6. Bones grossly intact with some degenerative changes but no destructive lesion or fracture. Signed by Antoni Skinner MD 04/30/2017 10:05 A
--- NOTE | 2017-04-30 08:11 | IPNPDOC ---
Subjective Date Seen The patient was seen on 04/30/17. Subjective Chief Complaint/HPI The patient is a 57-year-old male admitted with a reason for visit of Diabetic Ketoacidoses. Events since last encounter remains non-verbal, starting to attempt to pull out lines. CIWA protocol scores 12-15. Ativan 1 mg not providing much effect to sedate. Appears to have abdominal pain on exam by staff. CT abd/pelvis: NAD. Insulin drip resumed due to elevated glucose and increased anion Gap. EEG completed: non-specific encephalopathy. Repeat CT head: negative. CArdiology consult completed due to elevated troponin. No intervention at this time due to patient's condition. General: Reports: ROS Unobtainable Objective Physical Examination General Exam: Positive: Mild Distress, Other (diaphoretic, grunting, groaning, rolling in bed, pulling at central line tubing. ), Negative: Alert ENT Exam: Positive: Atraumatic, Mucous membr. moist/pink, Pharynx Normal Neck Exam: Positive: Supple, Negative: JVD, thyromegaly Chest Exam: Positive: Clear to auscultation, Normal air movement Heart Exam: Positive: Rate Normal, Regular Rhythm, Normal S1, Normal S2, Negative: Murmurs, Rubs Telemetry: Positive: No significant arrhythmia Abdomen Exam: Positive: Normal bowel sounds, Soft, Negative: Tenderness, Hepatospenomegaly Extremity Exam: Negative: Edema Skin Exam: Positive: Nl turgor and temperature, Negative: Rash, Breakdown Psych Exam: Negative: Oriented x 3 Assessment /Plan Problems (1) DKA (diabetic ketoacidoses) Status: Acute Response to Treatment: Improving Problem Text: Continue Insulin drip. Blood sugar close to 200 range. Patient's mentation not improving. Concerning for other etiology. BMPs q 2 hrs. Anion Gap has normalized. (2) Metabolic encephalopathy Status: Acute Problem Text: related to DKA and potential alcoholic encephalopathy. Ammonia level and INR ordered. IV hydration with Thiamine and MVI. Unable to complete MRI due to patient's inability to follow commands. CT x 2 negative. EEG + for encephalopathy. Banana bag started. CIWA protocol with ativan per CIWA protocol started. (3) Alcohol abuse Status: Acute Problem Text: Thiamin and MVI IV ordered. Ativan prn agitation/withdrawal symptoms. CIWA protocol (4) Elevated troponin Status: Acute Problem Text: Troponin noted 2.45 over night. Repeat this am 2.1. repeat 1.45. Cardiology consulted. no new orders. EKGs NSR. uneventful telemetry Echo completed 04/28/17: EF 70% no valvular d/o. (5) Acute renal failure Status: Acute Problem Text: Creatinine continues to improve Urine output is adequate. (6) Tremor Problem Text: documented tremor disorder by Endocrinology in outpatient notes. Patients GF notes LEFT sided tremor and describes contracture. Also causes unsteady gait. worse when patient is fatigued. Will consider MRI when patient is able to proceed. (7) Thrombocytopenia Status: Acute Problem Text: platelets continue to drop. now 82. Heparin DCd yesterday. eval liver with US Plan/VTE VTE Prophylaxis Ordered?: No (INR 1.33 on admission, HOLD on anti-coag until repeat INR TEDS/SCDs) VS, I&O, 24H, Fishbone Vital Signs/I&O Vital Signs Date Time Temp Pulse Resp B/P (MAP) Pulse Ox O2 Delivery O2 Flow Rate FiO2 04/30/17 04:15 99.1 103 22 104/53 (70) 97 Room Air Laboratory Data 24H LABS Laboratory Tests 2 04/29/17 08:58: Prothrombin Time 14.7H, Prothromb Time International Ratio 1.13, Anion Gap 12, Glomerular Filtration Rate 38.1L, Blood Urea Nitrogen 46H, Creatinine 1.95H, Sodium Level 140, Potassium Level 4.3, Chloride Level 109H, Carbon Dioxide Level 19L, Calcium Level 7.8L, Ammonia < 10 04/29/17 09:02: Bedside Glucose (Misc Panel) 106H 04/29/17 11:26: Blood Gas Bicarbonate Standard 16.2L, Arterial Blood pH 7.356, Arterial Blood Partial Pressure CO2 24.4L, Arterial Blood Partial Pressure O2 74.0L, Arterial Blood Total CO2 14.1L, Arterial Blood HCO3 13.4L, Arterial Blood Base Excess - 10.4L, Arterial Blood Oxygen Saturation 94.8L 04/29/17 11:37: Bedside Glucose (Misc Panel) 261H 04/29/17 11:38: Anion Gap 17H, Glomerular Filtration Rate 41.5L, Blood Urea Nitrogen 42H, Creatinine 1.81H, Sodium Level 138, Potassium Level 4.9, Chloride Level 106, Carbon Dioxide Level 15L, Calcium Level 8.0L 04/29/17 12:26: Anion Gap 19H, Glomerular Filtration Rate 42.6L, Blood Urea Nitrogen 43H, Creatinine 1.77H, Sodium Level 138, Potassium Level 4.8, Chloride Level 106, Carbon Dioxide Level 13L, Calcium Level 7.9L 04/29/17 15:59: Anion Gap 11, Glomerular Filtration Rate 42.6L, Blood Urea Nitrogen 40H, Creatinine 1.77H, Sodium Level 140, Potassium Level 4.5, Chloride Level 110H, Carbon Dioxide Level 19L, Calcium Level 7.6L 04/29/17 16:01: Bedside Glucose (Misc Panel) 227H 04/29/17 17:11: Bedside Glucose (Misc Panel) 338H 04/29/17 18:16: Anion Gap 12, Glomerular Filtration Rate 43.4L, Blood Urea Nitrogen 38H, Creatinine 1.74H, Sodium Level 142, Potassium Level 4.3, Chloride Level 111H, Carbon Dioxide Level 19L, Calcium Level 7.5L, Total Creatine Kinase 988H, Creatine Kinase MB 22.4H, Creatine Kinase MB Relative Index 2.26, Troponin I 1.36#H 04/29/17 18:57: Bedside Glucose (Misc Panel) 337H 04/29/17 19:59: Bedside Glucose (Misc Panel) 302H 04/29/17 20:43: Anion Gap 10, Glomerular Filtration Rate 43.7L, Blood Urea Nitrogen 35H, Creatinine 1.73H, Sodium Level 147H, Potassium Level 4.2, Chloride Level 115H, Carbon Dioxide Level 22, Calcium Level 7.5L 04/29/17 21:11: Bedside Glucose (Misc Panel) 277H 04/29/17 22:12: Bedside Glucose (Misc Panel) 268H 04/29/17 23:17: Bedside Glucose (Misc Panel) 194H 04/29/17 23:19: Anion Gap 9, Glomerular Filtration Rate 50.0L, Blood Urea Nitrogen 33H, Creatinine 1.54H, Sodium Level 147H, Potassium Level 4.1, Chloride Level 116H, Carbon Dioxide Level 22, Calcium Level 7.5L 04/30/17 00:23: Bedside Glucose (Misc Panel) 256H 04/30/17 00:24: Anion Gap 7L, Glomerular Filtration Rate 53.2L, Blood Urea Nitrogen 33H, Creatinine 1.46H, Sodium Level 146H, Potassium Level 4.2, Chloride Level 116H, Carbon Dioxide Level 23, Calcium Level 7.6L 04/30/17 01:09: Bedside Glucose (Misc Panel) 252H 04/30/17 02:11: Bedside Glucose (Misc Panel) 175H 04/30/17 02:12: Anion Gap 6L, Glomerular Filtration Rate 54.0L, Blood Urea Nitrogen 31H, Creatinine 1.44H, Sodium Level 147H, Potassium Level 3.9, Chloride Level 117H, Carbon Dioxide Level 24, Calcium Level 7.6L 04/30/17 03:05: Bedside Glucose (Misc Panel) 235H 04/30/17 04:11: Anion Gap 8, Glomerular Filtration Rate 54.0L, Blood Urea Nitrogen 29H, Creatinine 1.44H, Sodium Level 148H, Potassium Level 3.9, Chloride Level 117H, Carbon Dioxide Level 23, Calcium Level 7.6L 04/30/17 04:14: Bedside Glucose (Misc Panel) 248H 04/30/17 05:04: Bedside Glucose (Misc Panel) 250H 04/30/17 06:22: Bedside Glucose (Misc Panel) 258H 04/30/17 06:23: Immature Granulocyte % (Auto) 0.8H, White Blood Count 6.0, Red Blood Count 3.43L , Hemoglobin 11.1L, Hematocrit 31.7L, Mean Corpuscular Volume 92.4, Mean Corpuscular Hemoglobin 32.4, Mean Corpuscular Hemoglobin Concent 35.0, Red Cell Distribution Width 12.8, Platelet Count 84L, Neutrophils (%) (Auto) 72.6H, Lymphocytes (%) (Auto) 20.9L, Monocytes (%) (Auto) 5.5H, Eosinophils (%) (Auto) 0.2, Basophils (%) (Auto) 0.0, Neutrophils # (Auto) 4.4, Lymphocytes # (Auto) 1.3L, Monocytes # (Auto) 0.3, Eosinophils # (Auto) 0.0, Basophils # (Auto) 0.0, Immature Granulocyte # (Auto) 0.1H, Nucleated Red Blood Cells % (auto) 0.0, Immature Platelet Fraction 3.0, Anion Gap 5L, Glomerular Filtration Rate > 60.0 , Blood Urea Nitrogen 26H, Creatinine 1.29, Sodium Level 148H, Potassium Level 3.8, Chloride Level 117H, Carbon Dioxide Level 26, Calcium Level 7.7L, Aspartate Amino Transf (AST/SGOT) 63H, Alanine Aminotransferase (ALT/SGPT) 30, Alkaline Phosphatase 67, Total Bilirubin 0.6, Total Protein 4.9L, Albumin 2.4L, Magnesium Level 2.6H, Albumin/Globulin Ratio 0.96L 04/30/17 07:04: Bedside Glucose (Misc Panel) 234H CBC/BMP Laboratory Tests 04/29/17 08:58 Calcium Level 7.8 L 04/29/17 11:38 Calcium Level 8.0 L 04/29/17 12:26 Calcium Level 7.9 L 04/29/17 15:59 Calcium Level 7.6 L 04/29/17 18:16 Calcium Level 7.5 L 04/29/17 20:43 Calcium Level 7.5 L 04/29/17 23:19 Calcium Level 7.5 L 04/30/17 00:24 Calcium Level 7.6 L 04/30/17 02:12 Calcium Level 7.6 L 04/30/17 04:11 Calcium Level 7.6 L 04/30/17 06:23 Calcium Level 7.7 L, Red Blood Count 3.43 L, Mean Corpuscular Volume 92.4, Mean Corpuscular Hemoglobin 32.4, Mean Corpuscular Hemoglobin Concent 35.0, Red Cell Distribution Width 12.8, Neutrophils (%) (Auto) 72.6 H, Lymphocytes (%) (Auto) 20.9 L, Monocytes (%) (Auto) 5.5 H, Eosinophils (%) (Auto) 0.2, Basophils (%) ( Auto) 0.0, Neutrophils # (Auto) 4.4, Lymphocytes # (Auto) 1.3 L, Monocytes # ( Auto) 0.3, Eosinophils # (Auto) 0.0, Basophils # (Auto) 0.0, Aspartate Amino Transf (AST/SGOT) 63 H, Alanine Aminotransferase (ALT/SGPT) 30, Alkaline Phosphatase 67, Total Bilirubin 0.6, Total Protein 4.9 L, Albumin 2.4 L Microbiology Microbiology 04/28/17 Blood Culture - Preliminary, Resulted No growth after 24 hours . All specim... 04/28/17 Blood Culture - Preliminary, Resulted No growth after 24 hours . All specim... 04/28/17 Urine Culture, Received Pending Rama Rodriguez [facility] Apr 30, 2017 08:11
[2017-04-30] MEDS ORDERED: LORazepam 2 MG/ML VIAL (J2060) IV PRN ×2 (08:15→20:30)
[2017-04-30] MEDS ORDERED: LORazepam 2 MG/ML VIAL (J2060) IV STA (08:16)
--- NOTE | 2017-04-30 08:27 | IPN ---
DATE: 04/30/2017 Mr. lOiveira is a 57-year-old man who has longstanding history of type 1 diabetes who presented with diabetic ketoacidosis (DKA). He is also known to be a fairly heavy alcoholic. He initially was started on insulin drip and after he closed the anion gap, it was changed to longer acting insulin, but unfortunately his anion gap again increased and he is back on insulin drip. His mental status has been altered since admission. He is moaning and groaning. There are no purposeful responses. He would not answer to verbal stimuli and to painful stimulation. There seems to be some non-focused thrashing. Cardiology was called because he had elevated Troponin that peaked at approximately 2.5. The initial ECG reveals sinus rhythm with wide QRS complex, but there were no ischemic abnormalities. After correction of acidemia, he had normal EKG yesterday. He also had an echocardiogram yesterday that was interpreted by Dr. Maravilla as normal. I will obtain yet another EKG this morning. PHYSICAL EXAMINATION: Mr. Oliveira is a middle-aged man. He lays in ICU bed in horizontal position. He is moving around, but has closed eyes that he would not open. There is no response to verbal or painful stimuli that would be focused or appropriate. His pupils are reactive and there is conjugated gaze. Lungs are clear to auscultation with good air movement. Heart exam reveals regular rhythm. I do not appreciate gallop, rub or murmur. Abdomen is soft. No obvious guarding and no wincing or avoiding maneuvers to deep palpation. Extremities have preserved pulses. Neurologically as above. VITAL SIGNS: Blood pressure 104/53, heart rate around 100, is afebrile. Saturation 97% on room air and he weighs 89 kg. LABORATORY DATA: CBC WBC count 6, hemoglobin 11.1, hematocrit 31.7, platelet count 84,000. Basic metabolic panel as of this morning sodium 148, potassium 3.8, BUN 26, creatinine 1.3 and glucose 262, calcium is 7.7. Normal liver function tests. Albumin is 2.4. INR yesterday was 1.1. On admission his toxicology screen detected some acetaminophen, some salicylate, and a very low level of alcohol. The rest of the tox screen was negative. Blood gases yesterday revealed pH 7.35 with pCO2 24 and pO2 74. His neuroimaging was relatively unremarkable, certainly no focal findings. Chest x-ray was performed twice after placement of central line and is relatively unremarkable as well. ASSESSMENT/PLAN: Mr. Oliveira is a 57-year-old man who has a longstanding history of type 1 diabetes, but no prior history of coronary artery disease. He apparently had normal cardiac catheterization in 2004. He presented with DKA and even after correction of acidemia and closing anion gap, he remains profoundly encephalopathic. I am not sure what is the etiology and further management will be left to the primary team and critical care team. From a cardiac perspective, at this point I would not pursue any further evaluation until his condition stabilizes. He does not have any obvious evolution on EKG and will get yet another EKG today. He also has not had any arrhythmias other than a five beat run of nonsustained ventricular tachycardia yesterday. His echo reveals preserved LV systolic function. Consequently I believe that the troponin elevation is principally related to acidemia and metabolic derangements rather than thrombotic event. It certainly indicates severity of his illness. I would not necessarily put the patient on aspirin as his platelets have been dropping. The heparin was already discontinued. This will continue to be monitored. I spoke with ALEX Vivas regarding my plan. Further cardiac evaluation will be necessary provided he recovers from his current illness.
[2017-04-30 08:45] LABS: INR 1.19
[2017-04-30 09:02] LABS: CALCIUM LEVEL 7.8 MG/DL (8.5-10.1); CREATININE FOR GFR 1.32 MG/DL (0.70-1.30); GLOMERULAR FILTRATION RATE 59.7 (>56); POTASSIUM SERUM 3.9 MEQ/L (3.5-5.1)
[2017-04-30] MEDS ORDERED: D5W 1000 ML IV SCH (09:45)
[2017-04-30] MEDS ORDERED: NS IV ONE (09:45)
[2017-04-30] MEDS ORDERED: DESMOPRESSIN ACETATE IV ONE (09:45)
[2017-04-30] MEDS ORDERED: D5W/0.2% SODIUM CHLORIDE 1,000 ML IV ONE (10:00)
[2017-04-30] MEDS: D5W/0.2% SODIUM CHLORIDE 1,000 ML IV SCH ×2 (10:00→17:39)
[2017-04-30] MEDS ORDERED: DESMOPRESSIN ACETATE 2 MCG in NS 50 ML IV ONE (10:00)
[2017-04-30] MEDS ORDERED: DESMOPRESSIN 4 MCG/ML INJ VIAL/AMP (J2597) IV ONE (10:00)
[2017-04-30] MEDS ORDERED: MULTIVITAMIN -ADULT INJECTION 10 ML, THIAMINE INJection 100 MG, FOLIC ACID 1 MG in NS 1... IV ONE (10:00)
[2017-04-30 10:40] LABS: ANION GAP 6 MEQ/L (8-16); BLOOD UREA NITROGEN 24 MG/DL (7-18); CALCIUM LEVEL 7.6 MG/DL (8.5-10.1); CARBON DIOXIDE LEVEL 26 MEQ/L (21-32); CHLORIDE LEVEL 115 MEQ/L (98-107); CREATININE FOR GFR 1.18 MG/DL (0.70-1.30); GLOMERULAR FILTRATION RATE > 60.0 (>56); GLUCOSE, FASTING 224 MG/DL (70-105); POTASSIUM SERUM 3.7 MEQ/L (3.5-5.1); SODIUM LEVEL 147 MEQ/L (136-145)
--- NOTE | 2017-04-30 11:30 | CCN ---
DATE OF SERVICE: 04/30/2017 Critical care time was 1 hour and 43 minutes. This excludes all procedures. I was urgently called to Mr. Oliveira's bedside for altered mental status. Mr. Oliveira is a 57-year-old male with type 1 diabetes who presented with diabetic ketoacidosis (DKA) with significant acidemia and has been in the hospital since the night of the . He has been here less than 48 hours. He apparently went to work on the and went home because he felt ill. His significant other apparently helped him to bed after he had some change in mental status. The next morning found him down, was brought to the emergency room with a pH is 6.9 and found to be in diabetic ketoacidosis with a glucose of 1000. He was admitted to the hospitalist service and then transferred to the [facility] practice service with correction of his diabetic ketoacidosis, improvement of his acidosis. However, he had continued altered mental status. Because of the severity of his altered mental status and his intermittent apneic episodes, I was consulted this morning in the intensive care unit (ICU). On arrival to the patient's bedside, he is unable to have any conversation due to the severity of his impairment. His mother is at his bedside who was not present prior to this event, however, provides me with the history as outlined above. She states he has never had an episode like this. Rarely can he have episodes of hypoglycemia. She is not aware of any preceding infectious symptoms other when he went home from work that day did not feel well. Patient has received a total of 6 mg of Ativan over the past admission and apparently has a history of alcohol use. Temperature is 99.1, pulse is 103, sinus tachycardia, respiratory rate is 22, blood pressure is 104/53 with a mean arterial pressure is 70, oxygen saturation is 97% on room air. Rarely during times of audible upper airway obstruction will his saturation dip down into the high 80s however this is fleeting. Central venous pressure is 15. HEENT: Sclerae clear and anicteric. Pupils are equal and reactive to light and have consensual reflex. Corneal reflex is present. Oculocephalic reflex is abnormal. He has no neck stiffness. Palpation of his neck shows no nuchal rigidity. Mucous membranes are moist. Tongue is midline. He is fighting against me opening his mouth. He is appropriately coughing at times. Neck is supple. No tracheal deviation or mass. No elevated JVP. No thyromegaly. Pulmonary: Clear to auscultation without rales, rhonchi or wheezes. No accessory muscle use. Cardiac: Tachycardiac S1, S2 without audible murmur, rub or gallop. No elevated JVP. No systemic edema. Peripheral pulses are palpable at radial locations and pedal effusions without asymmetry. Abdomen: Soft, nontender, nondistended. No discernible hepatosplenomegaly. No masses or hernia. Extremities: No cyanosis, clubbing or edema. Musculoskeletal: Well-developed, no evidence of joint effusion. No unilateral weakness. Neurologic: Pupillary corneal and oculocephalic reflex as mentioned above. DTRs are hypo-reflexive bilaterally symmetric at the patella and brachial radialis. There is no evidence of myoclonus. Babinski's is normal. There is no muscle rigidity. There is no unilateral weakness. Tongue is midline. The patient is moaning, appears to be able to protect his airway with coughing but is not making eye contact. No tremor or seizure activity. Laboratory evaluation shows a sodium 148, potassium 3.8, chloride 117, bicarb of 26, BUN of 26, creatinine of 1.29 with a glucose of 262, white blood cell count of 11.1, hematocrit is 31.7 with a glucose of 84. Corrected sodium on admission is 139, corrected sodium now is 152. Over less than a 48-hour period, there had been a change of 13. Urinalysis showed ketones, glucose and hematuria. The patient is now thrombocytopenic with a platelet count of 84. IMPRESSION 1. Altered mental status, not clear, however did have a change in sodium which will be corrected with D5W 0.25 normal saline. After discussion with nephrology , they felt that desmopressin was not indicated this point in time. Although there was a mild over correction, unlikely that this would cause central pontine myelinolysis. Differential includes anoxic brain injury, drugs or toxin. Urine toxicology is negative, unremarkable. I have stopped his Ativan as he is unlikely to have alcohol withdrawal given the duration of his hospitalization. At this point in time, I see no signs of meningitis, although if he develops signs, symptoms of infection, with have a low threshold for LP. No evidence of hemorrhage on imaging. Noncontrast head CT is normal. Differential remains wide however this appears to be most likely a metabolic encephalopathy. 2. Intermittent apnea is consistent with obstructive sleep apnea physiology, short-lived. I believe at this point in time, the patient is able to protect his airway. He is coughing. Will require close monitoring for the need for intubation. However, I do not believe CPAP can be added at this point in time as he is quite combative and would unlikely be able to tolerate the mask being present. 3. Hyperglycemia with recent DKA. No evidence of infection at this point in time. The patient was empirically placed on Zosyn by primary admitting team. Will continue to maintain glucose between 150 and 250. MTDD
[2017-04-30 12:28] LABS: ANION GAP 8 MEQ/L (8-16); BLOOD UREA NITROGEN 23 MG/DL (7-18); CALCIUM LEVEL 7.8 MG/DL (8.5-10.1); CARBON DIOXIDE LEVEL 24 MEQ/L (21-32); CHLORIDE LEVEL 117 MEQ/L (98-107); GLOMERULAR FILTRATION RATE > 60.0 (>56); GLUCOSE, FASTING 264 MG/DL (70-105); POTASSIUM SERUM 3.9 MEQ/L (3.5-5.1); SODIUM LEVEL 149 MEQ/L (136-145)
[2017-04-30 16:31] LABS: ALBUMIN 2.3 GM/DL (3.2-5.2); ALBUMIN/GLOBULIN RATIO 1.05 (1.00-1.93); ALKALINE PHOSPHATASE 64 U/L (45-117); ALT/SGPT 30 U/L (12-78); ANION GAP 6 MEQ/L (8-16); AST/SGOT 53 U/L (7-37); BILIRUBIN,TOTAL 0.8 MG/DL (0.2-1.0); BLOOD UREA NITROGEN 21 MG/DL (7-18); CALCIUM LEVEL 7.6 MG/DL (8.5-10.1); CARBON DIOXIDE LEVEL 26 MEQ/L (21-32); CHLORIDE LEVEL 115 MEQ/L (98-107); CREATININE FOR GFR 1.15 MG/DL (0.70-1.30); GLOMERULAR FILTRATION RATE > 60.0 (>56); GLUCOSE, FASTING 254 MG/DL (70-105); POTASSIUM SERUM 3.7 MEQ/L (3.5-5.1); SODIUM LEVEL 147 MEQ/L (136-145); TOTAL PROTEIN 4.5 GM/DL (6.4-8.2)
--- NOTE | 2017-04-30 17:12 | REP ---
Abdominal right upper quadrant ultrasound: The study is technically difficult because of the the patient is non cooperative and combative . There is no cholelithiasis, gallbladder wall thickening or pericholecystic fluid. There is no intrahepatic biliary duct dilatation. The common duct could not be identified because of difficulties with patient cooperation. The hepatic parenchyma is homogeneous. The hepatic margin appear smooth. There are no hepatic masses. A right pleural effusion is identified incidentally. The visualized portion of the pancreatic head is unremarkable. The body and tail are obscured by bowel gas. There is no right renal hydronephrosis, calculus, mass or cyst. The right kidney is normal size 12.5 cm craniocaudad length. Signed by Tomer Claros MD 04/30/2017 05:03 P
[2017-04-30] MEDS ORDERED: FUROSEMIDE 20 MG/2 ML VIAL (J1940) IV ONE (17:45)
[2017-04-30] MEDS: INSULIN HUMAN REGULAR 100 UNITS in NS 99 ML IV SCH (18:09)
[2017-04-30] MEDS: KCL 20MEQ IN D5W 1000ML 1,000 ML IV SCH (18:12)
--- NOTE | 2017-04-30 20:09 | ECGEPIP ---
Stationary ECG Study [facility] Test Date: 2017-04-30 Pat Name: NANCY MILLER Department: Room: [place] [address] Gender: M Internet Assessor: MONALISA : 1960 Requested By: Rama TERRY Order Number: [id number] Reading MD: Flavia Rivero Measurements Intervals [place] Rate: 104 P: 66 [place]: 139 QRS: 84 QRSD: 102 T: 35 QT: 339 QTc: 447 Interpretive Statements SINUS TACHYCARDIA INCOMPLETE RIGHT BUNDLE BRANCH BLOCK SINCE 04/28/17 QRS COMPLEX IS NOW NARROW AND Right bundle branch block IS NO LONGER PRESENT Electronically Signed On 04-30-2017 20:09:22 EST by Flavia Rivero
[2017-04-30] MEDS: PANTOPRAZOLE 40MG INJ (PROTONIX) (C9113) IV SCH (21:13)
[2017-04-30 21:40] LABS: POTASSIUM SERUM 3.5 MEQ/L (3.5-5.1)
--- NOTE | 2017-04-30 23:15 | CR ---
DATE OF CONSULTATION: 04/30/2017 REASON FOR CONSULTATION: Hypernatremia following correction of hyponatremia and diabetic ketoacidosis in this gentleman with altered mentation. HISTORY OF PRESENT ILLNESS: Mr. Oliveira is a 57-year-old gentleman with known history of diabetes, hyperlipidemia, history of hypertension, history of cardiac catheterization in 2004 and prior history of alcohol use. He was brought to emergency room on April 28 due to altered mentation. The patient was diagnosed with diabetic ketoacidosis and admitted to hospital. His blood sugar was 1130 mg at that time. His sodium was 123 and potassium 6.9. Lactic acid level was 6.3. His blood gas initially showed a pH of 6.91 and a bicarb of 5.6. Since April 28 at 10:00 a.m. when his initial labs were drawn, the patient has been treated for diabetic ketoacidosis and his hyperglycemia and anion gap improved. His blood sugar came down to 309 in the evening of April 28 and blood sugar sodium level was up to 136. Since then his sodium level has increased further up to 148 today while his blood sugar is in high 200s. The patient has persistently altered mentation and he is not responsive to even painful stimuli. Nephrology consultation was requested for his electrolyte abnormality and the patient is seen in the intensive care unit this morning. PAST MEDICAL AND SURGICAL HISTORY: Significant for: 1. History of insulin-requiring diabetes type 1. 2. Hypertriglyceridemia. 3. History of qoiter. 4. History of hiatal hernia. 5. History of cardiac catheterization in 2004, reported within normal limits. 6. Vitamin D deficiency. 7. 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 8. History of endoscopic sinus surgery by ENT, most likely related to retropharyngeal mass. 9. History of hypertension. PAST SURGICAL HISTORY: Significant for cardiac catheterization, esophagogastroduodenoscopy (EGD), bilateral endoscopic maxillary surgery, endoscopic right frontal sinus surgery and no other significant surgeries. FAMILY HISTORY: Father is with history of diabetes and myocardial infarction ([place]). Mother is alive. PERSONAL AND SOCIAL HISTORY: The patient is a former smoker. He does not use alcohol. 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 REVIEW OF SYSTEMS: The patient is completely unresponsive and unable to provide any information. According to his admission history he did not feel well a day prior to admission and went home from work. His girlfriend helped him to get in the bed and then next morning he was found unresponsive. Since then, he has not improved any significantly in his mentation though his metabolic problems have improved significantly. There is no reported history of fall, fever or nausea or vomiting. PHYSICAL EXAMINATION: Temperature is 98.2 degrees Fahrenheit, heart rate about 100 per minute and respiratory rate 20 per minute. Blood pressure 118/72 mmHg and oxygen saturation 97% on 2 liters oxygen via nasal cannula. Head is atraumatic. Pupils are equal and reactive to light and sclera is anicteric. Neck is supple and without any jugular venous distention (JVD) or thyroid enlargement. Heart: Sounds are tachycardiac but regular. Lungs: Have good bilateral air entry without any wheezing or rales. Abdomen is soft and the patient does grimace when I performed deep palpation. There is no organomegaly. Bowel sounds are present. Extremities: Have no cyanosis or clubbing. Neurologically, the patient does not respond to verbal or tactile stimuli. He does grimace now to painful stimuli. Skin has no rash or ulcers. LABORATORY DATA: Admission labs on April 28 showed sodium level 123 and potassium 6.9. CO2 7, BUN 49, creatinine 3.0 and glucose 1130. Lactic acid level was 6.3 and calcium 8.2. Troponin was 0.20. Later in the evening of April 28 his blood sugar came down to 499, sodium 133, potassium 4.5, CO2 14, BUN 50 and creatinine 2.73. Late evening about midnight of April 28 blood sugar was down to 309, sodium 136 and potassium 4.4. CO2 20, BUN 48 and creatinine 2.41. 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 Blood sugar 236, BUN 46 and creatinine 1.95. Serum ammonia level was less than 10 at that time. Troponin in the morning of April 29 was 2.14. In the evening of April 29 sodium was up to 147, BUN 35 and creatinine 1.73. Glucose 297 and calcium 7.5. Since then his sodium level has remained between 147 and 148 and this morning was up to 149 while his blood sugar was 262. BUN has improved to 25 and creatinine 1.32. Repeat blood gas this morning of April 29 showed a pH of 7.35, pCO2 24, pO2 74 and bicarb 16.2. Urinalysis on admission showed 3+ glucose, 1+ ketones at 2+ blood. Urine pH was 5.0. Toxicology has been reported negative other than salicylate level of 4.5 and acetaminophen 3.9. ETOH alcohol was less than 0.003. WBC count on admission was 19.1 and hemoglobin 12.9. Today his WBC count 6.0, hemoglobin 11.1 and hematocrit 31.7. His imaging included two head CT scans, chest x-rays and abdominal and pelvic CT scan. Chest x-rays did not show any acute infiltrate or effusion. Head CT scan without IV contrast was reported negative other than minimal volume loss. Abdominal and pelvic CT scan without IV contrast showed bilateral pleural effusion and basilar atelectasis. Liver, spleen, gallbladder, pancreas and adrenal glands were unremarkable. There was no ascites. PROBLEMS: 1. Hyponatremia and hypernatremia. Apparently the patient presented with a sodium level of 123 on admission, however at that time his blood sugar was about 1100. His corrected sodium at that time was about 139. His sodium did correct over about 24 hours when his hyperglycemia corrected. However, at that time sodium level was still 139. Since then his sodium level has over corrected to 149. His blood sugar is 224. At this point, I would recommend to lower his sodium level down to about 140 range with the use of D5W or D5 and quarter normal saline. I have discussed this with Dr. Robles and have suggested to cancel the order for desmopressin and just give him IV fluids at about 150 mL per hour while monitoring his electrolytes closely. He is likely to require potassium supplement as he does have good urine output. His sodium level corrected over about 48 hours and I do not feel that it has caused his altered mentation. We will have to wait and see how his condition improves over next 24 hours while we lower his sodium down to 140 range. 2. Acute renal failure. The patient did have acute renal failure at the time of admission due to dehydration and diabetic ketoacidosis, which has improved significantly. I would recommend to continue with aggressive IV fluid hydration. 3. Diabetic ketoacidosis. Acidosis has improved and hyperglycemia have also improved. Now he is going to receive D5W intravenously. I would recommend to keep his blood sugars in the range of 150-200 mg/dl and ovoid recurrent hyperglycemia. 4. Altered mentation. Most likely this is metabolic in origin. He does not seem to have any infectious etiology at present. He is afebrile and hemodynamically stable. Close monitoring is recommended and we anticipate improvement in his mentation as his metabolic derangements are corrected. I thank you for involving me in the care of Mr. Oliveira. I will follow him along with you.
[2017-05-01] VITALS (18 sets, daily range): BP systolic 91–133; BP diastolic 51–78
[2017-05-01] MEDS: PIPERACILLIN/TAZOBACTAM SOD 3.375 GM in D5W 50 ML IV SCH ×2 (00:15→08:36)
[2017-05-01] MEDS: INSULIN IV RATE CHANGE DOCUMENTATION ML/HR XX SCH ×6 (01:17→12:25)
[2017-05-01] MEDS: KCL 20MEQ IN D5W 1000ML 1,000 ML IV SCH (05:24)
[2017-05-01 06:12] LABS: BASO % 0.2 % (0.0-1.0); EOS # 0.1 10^3/uL (0.0-0.50); EOS % 0.9 % (0.0-3.0); IMMATURE GRANULOCYTE % 0.5 % (0-0); LYMPH # 1.4 10^3/uL (1.5-4.5); LYMPH % 24.7 % (24.0-44.0); MEAN CORPUSCULAR HEMOGLOBIN 32.1 pg (27.0-33.0); MEAN CORPUSCULAR HGB CONC 34.8 g/dl (32.0-36.5); MEAN CORPUSCULAR VOLUME 92.3 fl (80.0-96.0); MONO # 0.3 10^3/uL (0.0-0.8); MONO % 5.7 % (0.0-5.0); RED CELL DISTRIBUTION WIDTH 12.2 % (11.5-14.5); WHITE BLOOD COUNT 5.8 10^3/uL (4.0-10.0)
[2017-05-01 06:13] LABS: PLATELET COUNT, AUTOMATED 81 10^3/uL (150-450)
[2017-05-01 06:24] LABS: ALBUMIN 2.4 GM/DL (3.2-5.2); ALKALINE PHOSPHATASE 70 U/L (45-117); ALT/SGPT 31 U/L (12-78); ANION GAP 8 MEQ/L (8-16); AST/SGOT 44 U/L (7-37); BILIRUBIN,TOTAL 1.4 MG/DL (0.2-1.0); BLOOD UREA NITROGEN 15 MG/DL (7-18); CALCIUM LEVEL 7.4 MG/DL (8.5-10.1); CARBON DIOXIDE LEVEL 27 MEQ/L (21-32); CHLORIDE LEVEL 110 MEQ/L (98-107); GLOMERULAR FILTRATION RATE > 60.0 (>56); GLUCOSE, FASTING 212 MG/DL (70-105); MAGNESIUM LEVEL 2.1 MG/DL (1.8-2.4); POTASSIUM SERUM 3.4 MEQ/L (3.5-5.1); SODIUM LEVEL 145 MEQ/L (136-145); TOTAL PROTEIN 4.8 GM/DL (6.4-8.2)
--- NOTE | 2017-05-01 07:43 | IPNPDOC ---
Subjective Date Seen The patient was seen on 05/01/17. Subjective Chief Complaint/HPI The patient is a 57-year-old male admitted with a reason for visit of Diabetic Ketoacidoses. Events since last encounter Patient's behavior has calmed. no need for sedation. Last Lorazepam dose more than 24 hours ago. Has started to respond with one word answers, remains lethargic and confused. General: Reports: ROS Unobtainable Constitutional: Denies: Fever, Night Sweats Skin: Denies: Breakdown Objective Physical Examination General Exam: Positive: No Acute Distress, Other (resting comfortably, non- verbal), Negative: Alert ENT Exam: Positive: Atraumatic, Mucous membr. moist/pink, Pharynx Normal Neck Exam: Positive: Supple, Negative: JVD, thyromegaly Chest Exam: Positive: Clear to auscultation, Normal air movement Heart Exam: Positive: Rate Normal, Regular Rhythm, Normal S1, Normal S2, Negative: Murmurs, Rubs Telemetry: Positive: No significant arrhythmia Abdomen Exam: Positive: Normal bowel sounds, Soft, Negative: Tenderness, Hepatospenomegaly Extremity Exam: Negative: Edema Skin Exam: Positive: Nl turgor and temperature, Negative: Rash, Breakdown Psych Exam: Negative: Oriented x 3 Assessment /Plan Problems (1) DKA (diabetic ketoacidoses) Status: Acute Response to Treatment: Improving Problem Text: Continue Insulin drip. Blood sugar close to 200 range. Patient's mentation mildly improving. BMPs q 2 hrs. Anion Gap has normalized. (2) Metabolic encephalopathy Status: Acute Problem Text: related to DKA and potential alcoholic encephalopathy. Ammonia level and INR ordered. IV hydration with Thiamine and MVI. Unable to complete MRI due to patient's inability to follow commands. CT x 2 negative. EEG + for encephalopathy. Banana bag started. CIWA protocol with ativan per CIWA protocol started. (3) Alcohol abuse Status: Acute Problem Text: Thiamin and MVI IV ordered. Ativan prn agitation/withdrawal symptoms. CIWA protocol (4) Elevated troponin Status: Acute Problem Text: Troponin noted 2.45 over night. Repeat this am 2.1. repeat 1.45. Cardiology consulted. no new orders. EKGs NSR. uneventful telemetry Echo completed 04/28/17: EF 70% no valvular d/o. (5) Acute renal failure Status: Acute Problem Text: Creatinine continues to improve Urine output is adequate. (6) Tremor Problem Text: documented tremor disorder by Endocrinology in outpatient notes. Patients GF notes LEFT sided tremor and describes contracture. Also causes unsteady gait. worse when patient is fatigued. Will consider MRI when patient is able to proceed. (7) Thrombocytopenia Status: Acute Problem Text: platelets continue to drop. now 82. Heparin DCd yesterday. eval liver with US Plan/VTE VTE Prophylaxis Ordered?: No (INR 1.33 on admission, HOLD on anti-coag until repeat INR TEDS/SCDs) VS, I&O, 24H, Fishbone Vital Signs/I&O Vital Signs Date Time Temp Pulse Resp B/P (MAP) Pulse Ox O2 Delivery O2 Flow Rate FiO2 05/01/17 06:28 87 16 96/64 (75) 95 Room Air 05/01/17 04:30 98.0 04/30/17 20:00 2.0 I&O- Last 24 Hours up to 6 AM 05/02/17 06:00 Intake Total 0 ml Balance 0 ml Laboratory Data 24H LABS Laboratory Tests 2 04/30/17 07:48: Bedside Glucose (Misc Panel) 237H 04/30/17 08:23: Prothrombin Time 15.4H, Prothromb Time International Ratio 1.19, Anion Gap 8, Glomerular Filtration Rate 59.7, Blood Urea Nitrogen 25H, Creatinine 1.32H, Sodium Level 149H, Potassium Level 3.9, Chloride Level 118H, Carbon Dioxide Level 23, Calcium Level 7.8L, Magnesium Level 2.4 04/30/17 09:03: Bedside Glucose (Misc Panel) 228H 04/30/17 10:01: Anion Gap 6L, Glomerular Filtration Rate > 60.0, Blood Urea Nitrogen 24H, Creatinine 1.18, Sodium Level 147H, Potassium Level 3.7, Chloride Level 115H, Carbon Dioxide Level 26, Calcium Level 7.6L, Osmolality 314H 04/30/17 10:02: Urine Random Creatinine 70.6, Urine Random Sodium 143 04/30/17 10:05: Bedside Glucose (Misc Panel) 197H 04/30/17 11:05: Bedside Glucose (Misc Panel) 214H 04/30/17 11:48: Anion Gap 8, Glomerular Filtration Rate > 60.0, Blood Urea Nitrogen 23H, Creatinine 1.20, Sodium Level 149H, Potassium Level 3.9, Chloride Level 117H, Carbon Dioxide Level 24, Calcium Level 7.8L 04/30/17 11:52: Bedside Glucose (Misc Panel) 235H 04/30/17 13:03: Bedside Glucose (Misc Panel) 240H 04/30/17 14:09: Bedside Glucose (Misc Panel) 205H 04/30/17 15:10: Bedside Glucose (Misc Panel) 257H 04/30/17 15:53: Anion Gap 6L, Glomerular Filtration Rate > 60.0, Blood Urea Nitrogen 21H, Creatinine 1.15, Sodium Level 147H, Potassium Level 3.7, Chloride Level 115H, Carbon Dioxide Level 26, Calcium Level 7.6L, Aspartate Amino Transf (AST/SGOT) 53H, Alanine Aminotransferase (ALT/SGPT) 30, Alkaline Phosphatase 64, Total Bilirubin 0.8, Total Protein 4.5L, Albumin 2.3L, Albumin/Globulin Ratio 1.05 04/30/17 15:56: Bedside Glucose (Misc Panel) 223H 04/30/17 17:11: Bedside Glucose (Misc Panel) 183H 04/30/17 17:57: Bedside Glucose (Misc Panel) 200H 04/30/17 19:25: Bedside Glucose (Misc Panel) 207H 04/30/17 20:09: Bedside Glucose (Misc Panel) 210H 04/30/17 21:10: Bedside Glucose (Misc Panel) 223H 04/30/17 21:12: Sodium Level 147H, Potassium Level 3.5, Chloride Level 111H, Carbon Dioxide Level 29, Anion Gap 7L 04/30/17 22:14: Bedside Glucose (Misc Panel) 214H 04/30/17 23:06: Bedside Glucose (Misc Panel) 227H 05/01/17 00:08: Bedside Glucose (Misc Panel) 205H 05/01/17 01:14: Bedside Glucose (Misc Panel) 169H 05/01/17 02:17: Bedside Glucose (Misc Panel) 202H 05/01/17 03:08: Bedside Glucose (Misc Panel) 213H 05/01/17 04:12: Bedside Glucose (Misc Panel) 203H 05/01/17 05:12: Bedside Glucose (Misc Panel) 209H 05/01/17 05:34: Immature Granulocyte % (Auto) 0.5H, White Blood Count 5.8, Red Blood Count 3.52L , Hemoglobin 11.3L, Hematocrit 32.5L, Mean Corpuscular Volume 92.3, Mean Corpuscular Hemoglobin 32.1, Mean Corpuscular Hemoglobin Concent 34.8, Red Cell Distribution Width 12.2, Platelet Count 81L, Neutrophils (%) (Auto) 68.0H, Lymphocytes (%) (Auto) 24.7, Monocytes (%) (Auto) 5.7H, Eosinophils (%) (Auto) 0.9, Basophils (%) (Auto) 0.2, Neutrophils # (Auto) 4.0, Lymphocytes # (Auto) 1.4L, Monocytes # (Auto) 0.3, Eosinophils # (Auto) 0.1, Basophils # (Auto) 0.0, Immature Granulocyte # (Auto) 0.0, Nucleated Red Blood Cells % (auto) 0.0, Anion Gap 8, Glomerular Filtration Rate > 60.0, Blood Urea Nitrogen 15, Creatinine 0.90, Sodium Level 145, Potassium Level 3.4L, Chloride Level 110H, Carbon Dioxide Level 27, Calcium Level 7.4L, Aspartate Amino Transf (AST/SGOT) 44H, Alanine Aminotransferase (ALT/SGPT) 31, Alkaline Phosphatase 70, Total Bilirubin 1.4#H, Total Protein 4.8L, Albumin 2.4L, Magnesium Level 2.1, Albumin/ Globulin Ratio 1.00 05/01/17 06:10: Bedside Glucose (Misc Panel) 217H 05/01/17 07:16: Bedside Glucose (Misc Panel) 200H CBC/BMP Laboratory Tests 04/30/17 08:23 Calcium Level 7.8 L 04/30/17 10:01 Calcium Level 7.6 L 04/30/17 11:48 Calcium Level 7.8 L 04/30/17 15:53 Calcium Level 7.6 L, Aspartate Amino Transf (AST/SGOT) 53 H, Alanine Aminotransferase (ALT/SGPT) 30, Alkaline Phosphatase 64, Total Bilirubin 0.8, Total Protein 4.5 L, Albumin 2.3 L 04/30/17 21:12 Anion Gap 7 L 05/01/17 05:34 Red Blood Count 3.52 L, Mean Corpuscular Volume 92.3, Mean Corpuscular Hemoglobin 32.1, Mean Corpuscular Hemoglobin Concent 34.8, Red Cell Distribution Width 12.2, Neutrophils (%) (Auto) 68.0 H, Lymphocytes (%) (Auto) 24.7, Monocytes (%) (Auto) 5.7 H, Eosinophils (%) (Auto) 0.9, Basophils (%) ( Auto) 0.2, Neutrophils # (Auto) 4.0, Lymphocytes # (Auto) 1.4 L, Monocytes # ( Auto) 0.3, Eosinophils # (Auto) 0.1, Basophils # (Auto) 0.0, Calcium Level 7.4 L , Aspartate Amino Transf (AST/SGOT) 44 H, Alanine Aminotransferase (ALT/SGPT) 31 , Alkaline Phosphatase 70, Total Bilirubin 1.4 #H, Total Protein 4.8 L, Albumin 2.4 L Microbiology Microbiology 04/28/17 Blood Culture - Preliminary, Resulted No Growth after 48 hours. All Specime... 04/28/17 Blood Culture - Preliminary, Resulted No Growth after 48 hours. All Specime... 04/28/17 Urine Culture - Final, Complete Rama Rodriguez [employer] OPERATIONS SPECIALIST May 01, 2017 07:43
[2017-05-01] MEDS ORDERED: KCL 10MEQ IN 100ML SWI (KRUN) 10 MEQ in APPROPRIATE DILUENT 1 EA IV ONE ×4 (08:00→10:15)
--- NOTE | 2017-05-01 11:41 | CR ---
DATE OF CONSULTATION: 04/29/2017 PRIMARY CARE PROVIDER: MARA Vivas REASON FOR CONSULTATION: Abnormal serum troponin. HISTORY OF PRESENT ILLNESS: This is a 57-year-old male with a history of diabetes mellitus, hyperlipidemia, goiter and hiatal hernia was found to be almost unresponsive by his girlfriend. The patient initially did not want to go to the emergency room (ER). He managed to go to his bed. However, he was not getting better and he was brought to the ER in the online marketing coordinator hours on 04/28/2017. He was admitted for further management and monitoring with the diagnosis of diabetic ketoacidosis. He was found to have an abnormal serum troponin and cardiology consultation was called. When I saw Mr. Oliveira on the floor he was supine in the bed and appeared to be very obtunded. He managed to open his eyes upon calling his name, but he was not answering any questions. There was no orthopnea or paroxysmal nocturnal dyspnea (PND). There is no palpitations. All of the information was taken from the chart, the nursing staff and a distant family member at the bedside. PAST MEDICAL HISTORY: He has a history positive for diabetes mellitus and was seeing Dr. Fatimah Baker. He has an insulin pump. He also has a history of hyperlipidemia but a family member denies any hypertension because his blood pressure usually runs low. There is no history of coronary artery disease, myocardial infarction, congestive heart failure, atrial fibrillation, significant valvular heart disease, cardiomyopathy, sudden cardiac . He has had multiple episodes related syncope and these probably were related to his diabetes mellitus, but never been that severe. PAST SURGICAL HISTORY: 1. Positive for surgery done on sinuses otherwise unremarkable. 2. Esophagogastroduodenal (EGD) in the past. 3. Cardiac catheterization in 2004 and at that time he was found to have no coronary artery disease (CAD). 4. He was also found to have a retropharyngeal mass in 2012 and had endoscopic surgery. FAMILY HISTORY: Strongly positive for diabetes mellitus and coronary artery disease. SOCIAL HISTORY: The patient currently lives alone and has a girlfriend. . His still has the power of transactional attorney. He drinks at times beers. He smokes very rarely. 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 ALLERGIES: No known drug allergies. PHYSICAL EXAMINATION: GENERAL: The patient is very obtunded. VITAL SIGNS: Stable with a blood pressure of 110/67, pulse 100, respirations 20 and his maximum temperature is 98.8 degrees Fahrenheit, with an oxygen saturation of 97% on room air. He has a positive fluid balance of 3.1 liters for 04/28/2017. So far today, he has a positive fluid balance of 1.1 liter. HEENT: Examination of the head, ears, eyes, nose and throat, atraumatic. NECK: Supple, no jugular venous distention (JVD). LUNGS: Clear without any wheezing or crackles. HEART: Examination reveals normal S1, S2 without gallops. The point of maximal impulse (PMI) is nondisplaced. There is no rub. ABDOMEN: Soft. EXTREMITIES: No pedal edema. NEUROLOGICAL EXAM: Grossly negative for focal deficit. LABORATORY DATA: CBC reveals WBC of 7.3, hemoglobin 11.7, hematocrit 33.3 and platelets 106,000. On admission, CBC revealed WBC of 19.1, hemoglobin 12.9, hematocrit now 45.2 and platelets 257,000. Basic metabolic panel (BMP) reveals a sodium 147, potassium 4.1, chloride 116, CO2 22, BUN 33, creatinine 1.54, GFR 50. Fasting glucose 249, calcium 7.7. First set of serum troponin was 0.20, then increased to 0.41, and 2.4 and 2.54. The last sedum troponin level, number 4 was 2.14. Ammonia was less than 10. PT on admission was 16.7 with an INR of 1.33 and a PTT of 33.1. Urine toxicology was positive for Tylenol and salicylates. No alcohol. Chest x-ray done on 04/28/2017 revealed a hyperinflated chest with possible small effusions. No cardiomegaly. No manifestation of heart failure. EKG on admission on 04/28/2017 at 10:33:34 revealed sinus tachycardia at 109 beats per minute, right bundle branch block, and nonspecific ST T abnormalities. Repeat electrocardiogram done this morning 04/29/2017 at 7:40:37 revealed normal sinus rhythm, mildly tachycardic at 102 beats per minute and the right bundle branch block present on admission is no longer found. ST-T abnormalities also have improved. IMPRESSION: 1. Abnormal serum troponin, probably non-ST elevation myocardial infarction in this 57-year-old male admitted with diabetic ketoacidosis (DKA) with risk factors for coronary artery disease (CAD). The patient at the present time seems to be stable and the echocardiogram revealed a normal left ventricular ejection fraction (LVEF). We will continue to treat his DKA for now and continue current medications. Once he is able to take by mouth medications he should be started on a statin, as well as an PABLO inhibitor if there are no contraindications and a beta-roque at a small dose. He also should be on therapy. He will need further cardiac evaluation. In the meantime, will continue to treat him, will continue management and treatment of his diabetic ketoacidosis, he may benefit from a neurological evaluation. He probably has some underlying encephalopathy. It was a pleasure to participate in the care of . Elia Oliveira for his underlying cardiac condition. I will continue to monitor him along with you as needed while in the hospital. Please do not hesitate to call if any questions. cc: Marleen Patel, DO
[2017-05-01 12:33] LABS: ALBUMIN 2.3 GM/DL (3.2-5.2); ANION GAP 4 MEQ/L (8-16); BLOOD UREA NITROGEN 16 MG/DL (7-18); CALCIUM LEVEL 7.7 MG/DL (8.5-10.1); CARBON DIOXIDE LEVEL 29 MEQ/L (21-32); CHLORIDE LEVEL 109 MEQ/L (98-107); CREATININE FOR GFR 0.83 MG/DL (0.70-1.30); GLOMERULAR FILTRATION RATE > 60.0 (>56); GLUCOSE, FASTING 219 MG/DL (70-105); SODIUM LEVEL 142 MEQ/L (136-145)
[2017-05-01 12:50] LABS: PHOSPHORUS LEVEL 1.6 MG/DL (2.5-4.9)
[2017-05-01] MEDS ORDERED: LEVEMIR (INSULIN DETEMIR) 1 UNITS/0.01ML SC ONE (13:00)
[2017-05-01] MEDS: D5W IV SCH (14:06)
[2017-05-01] MEDS: POTASSIUM PHOSPHATE IV SCH (14:06)
[2017-05-01] MEDS: HumaLOG INSULIN (NovoLOG) PER UNIT SC SCH ×2 (17:05→21:12)
--- NOTE | 2017-05-01 18:13 | ECGEPIP ---
Stationary ECG Study [facility] Test Date: 2017-04-29 Pat Name: NANCY MILLER Department: Room: [place] [address] Gender: M Evp Operations: GLORIA : 1960 Requested By: JOB Bailon Order Number: [id number] Reading MD: Flavia Rivero Measurements Intervals [place] Rate: 102 P: -13 DE: 139 QRS: -12 QRSD: 92 T: 47 QT: 322 QTc: 421 Interpretive Statements SINUS TACHYCARDIA POSSIBLE RIGHT VENTRICULAR CONDUCTION DELAY POOR R WAVE PROGRESSION SINCE 04/28/17 QRS COMPLEX IS NOW NARROW AND Right bundle branch block IS NO LONGER PRESENT Electronically Signed On 05-01-2017 18:12:48 EST by Flavia Rivero
[2017-05-01] MEDS ORDERED: OXAZEPAM 15 MG CAP PO PRN (18:30)
[2017-05-01] MEDS: PANTOPRAZOLE 40MG INJ (PROTONIX) (C9113) IV SCH (21:12)
[2017-05-01] MEDS: SENOKOT S TAB PO SCH (21:12)
[2017-05-02] VITALS (7 sets, daily range): BP systolic 102–119; BP diastolic 59–77
[2017-05-02] MEDS: D5W IV SCH ×2 (00:13→10:00)
[2017-05-02] MEDS: POTASSIUM PHOSPHATE IV SCH ×2 (00:13→10:00)
[2017-05-02 04:32] LABS: BASO % 0.2 % (0.0-1.0); EOS # 0.1 10^3/uL (0.0-0.50); EOS % 2.7 % (0.0-3.0); IMMATURE GRANULOCYTE % 0.2 % (0-0); LYMPH # 1.2 10^3/uL (1.5-4.5); LYMPH % 27.2 % (24.0-44.0); MEAN CORPUSCULAR HGB CONC 34.7 g/dl (32.0-36.5); MEAN CORPUSCULAR VOLUME 92.2 fl (80.0-96.0); MONO # 0.3 10^3/uL (0.0-0.8); MONO % 7.8 % (0.0-5.0); NEUTROPHILS # 2.7 10^3/uL (1.8-7.7); NEUTROPHILS % 61.9 % (36.0-66.0); RED CELL DISTRIBUTION WIDTH 11.8 % (11.5-14.5); WHITE BLOOD COUNT 4.4 10^3/uL (4.0-10.0)
[2017-05-02 05:03] LABS: ALBUMIN 2.2 GM/DL (3.2-5.2); ALBUMIN/GLOBULIN RATIO 0.96 (1.00-1.93); ALKALINE PHOSPHATASE 79 U/L (45-117); ALT/SGPT 54 U/L (12-78); ANION GAP 9 MEQ/L (8-16); AST/SGOT 92 U/L (7-37); BILIRUBIN,TOTAL 1.3 MG/DL (0.2-1.0); BLOOD UREA NITROGEN 14 MG/DL (7-18); CALCIUM LEVEL 7.5 MG/DL (8.5-10.1); CARBON DIOXIDE LEVEL 24 MEQ/L (21-32); CHLORIDE LEVEL 107 MEQ/L (98-107); CREATININE FOR GFR 0.67 MG/DL (0.70-1.30); GLOMERULAR FILTRATION RATE > 60.0 (>56); GLUCOSE, FASTING 237 MG/DL (70-105); MAGNESIUM LEVEL 1.8 MG/DL (1.8-2.4); POTASSIUM SERUM 4.4 MEQ/L (3.5-5.1); SODIUM LEVEL 140 MEQ/L (136-145); TOTAL PROTEIN 4.5 GM/DL (6.4-8.2)
[2017-05-02 05:10] LABS: PLATELET COUNT, AUTOMATED 68 10^3/uL (150-450)
[2017-05-02] MEDS: HumaLOG INSULIN (NovoLOG) PER UNIT SC SCH ×4 (08:42→20:28)
[2017-05-02] MEDS: NICOTINE 14 MG/24 HR TRANSDERMAL TD SCH (08:42)
[2017-05-02] MEDS: SENOKOT S TAB PO SCH ×2 (08:54→20:28)
[2017-05-02] MEDS ORDERED: LEVEMIR (INSULIN DETEMIR) 1 UNITS/0.01ML SC SCH (09:00)
[2017-05-02] MEDS ORDERED: ASPIRIN 81 MG ENTERIC TAB PO SCH (09:00)
[2017-05-02] MEDS ORDERED: DOCUSATE SODIUM 100 MG CAP PO SCH (09:00)
--- NOTE | 2017-05-02 11:27 | IPN ---
DATE OF VISIT: 05/01/2017 Mr. Oliveira is seen this morning on his bedside. He remains sleepy but does respond to touch today, which is an improvement since yesterday. His sister is present on the bedside, who reports that he did talk and responded earlier. He has not been agitated. He is sleeping most of the time. He was admitted with diabetic ketoacidosis and had developed some electrolyte abnormalities including hypernatremia, which has improved. He has been hemodynamically stable and afebrile. On physical exam, patient is sleepy. He did answer all to tactile stimulus and verbal stimulus by saying yes. He was not able to have a conversation. His temperature is 97.9 degrees Fahrenheit, heart rate 84 per minute and respiratory rate 19 per minute. Blood pressure about 100/67 mmHg and oxygen saturation between 90-97% on room air. Intake and output records from last 24 hours showed total intake 3232 and output 4720. Head is atraumatic. Neck is supple and jugular venous distention (JVD) is not elevated. Heart sounds are regular and lungs have moderate bilateral air entry with poor inspiratory effort. There is no wheezing or rales. Abdomen is soft and somewhat tender as the patient does grimace on deep palpation. Bowel sounds are present. Extremities have no cyanosis or clubbing. Neurologically, he is sleepy but seems to be more arousable today compared with yesterday. He is moving all his limbs spontaneously when he turns. Today's labs show sodium level 145, potassium 3.4, BUN 15 and creatinine 0.9. Glucose 212, calcium 7.4 and magnesium 2.1. WBC count is 5.8, hemoglobin 11.3 and hematocrit 32.5. PROBLEMS: 1. Hypernatremia. Sodium level has improved since yesterday. We will continue with intravenous D5W and recheck his electrolytes in a few hours. We would like to keep his sodium level in low 140s. At the time of admission, his corrected sodium was about 139 and he did develop hyperkalemia. However, correction of sodium was not too rapid. In any event, now his sodium level is down to mid 140s and we will recheck in a few hours. 2. Hypokalemia. This is related to intravenous (IV) fluids and massive urine output. He will be given more potassium supplement in addition to what he has already receiving in the IV fluid. Electrolytes will be checked again. 3. Acute renal failure. He had mild acute kidney injury related to diabetic ketoacidosis and dehydration, which has already improved. We will continue with IV fluid hydration. 4. Nutrition. Patient has not received any nutrition since admission. Dr. El is going to discuss with his family about possibility of a feeding tube placement for temporary nutritional support. If the patient does not improve in next 24 hours, then we can either consider total parenteral nutrition (TPN) or nasogastric tube placement. 5. Altered mentation. Most likely related to metabolic issues and he seems to be slowly improving. From a renal standpoint, there does not seem to be any significant involvement related to his acute renal failure or electrolyte problems.
--- NOTE | 2017-05-02 12:24 | IPNPDOC ---
Subjective Date Seen The patient was seen on 05/02/17. Subjective Chief Complaint/HPI The patient is a 57-year-old male admitted with a reason for visit of Diabetic Ketoacidoses. Constitutional: Denies: Chills Eyes: Denies: Pain ENT: Denies: Head Aches Pulmonary: Denies: Dyspnea Cardiovascular: Denies: Chest Pain Gastrointestinal: Denies: Nausea, Vomiting Objective Physical Examination General Exam: Positive: No Acute Distress, Other (resting comfortably, non- verbal), Negative: Alert ENT Exam: Positive: Atraumatic, Mucous membr. moist/pink, Pharynx Normal Neck Exam: Positive: Supple, Negative: JVD, thyromegaly Chest Exam: Positive: Clear to auscultation, Normal air movement Heart Exam: Positive: Rate Normal, Regular Rhythm, Normal S1, Normal S2, Negative: Murmurs, Rubs Telemetry: Positive: No significant arrhythmia Abdomen Exam: Positive: Normal bowel sounds, Soft, Negative: Tenderness, Hepatospenomegaly Extremity Exam: Negative: Edema Skin Exam: Positive: Nl turgor and temperature, Negative: Rash, Breakdown Psych Exam: Negative: Oriented x 3 Assessment /Plan Problems (1) T1DM (type 1 diabetes mellitus) Status: Chronic Problem Text: baseline on [place] 723 insulin pump c lispro insulin managed by Dr. 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 Ammonia level and INR ordered. IV hydration with Thiamine and MVI. Unable to complete MRI due to patient's inability to follow commands. CT x 2 negative. EEG + for encephalopathy. Banana bag started. CIWA protocol with ativan per CIWA protocol started. (5) Alcohol abuse Status: Acute Problem Text: Thiamin and MVI IV ordered. Ativan prn agitation/withdrawal symptoms. CIWA protocol (6) Elevated troponin Status: Acute Problem Text: multiple CADRF-fair controlled T1DM, nicotine use BP will not support ACEI/BB + HI statin peak T-I 2.5 04/28-cw NSTEMI 04/29 1.4 04/28 TTE EF 70% no valvular d/o-plan outpx NST (as per [facility] consult 04/30) (7) Tremor Problem Text: past dx of cervical dystonia by Neurology plan MRI on 05/04 AM 04/29 CT head NAD documented tremor disorder by Endocrinology in outpatient notes. Patients GF notes LEFT sided tremor and describes contracture. Also causes unsteady gait. worse when patient is fatigued. Plan/VTE VTE Prophylaxis Ordered?: No (INR 1.33 on admission, HOLD on anti-coag until repeat INR TEDS/SCDs) VS, I&O, 24H, [facility] Vital Signs/I&O Vital Signs Date Time Temp Pulse Resp B/P (MAP) Pulse Ox O2 Delivery O2 Flow Rate FiO2 05/02/17 08:00 97 119/77 05/02/17 08:00 98.2 18 100 Room Air 04/30/17 20:00 2.0 I&O- Last 24 Hours up to 6 AM 05/03/17 06:00 Intake Total 850 ml Output Total 1400 ml Balance -550 ml Laboratory Data 24H LABS Laboratory Tests 2 05/01/17 13:03: Bedside Glucose (Misc Panel) 216H 05/01/17 14:03: Bedside Glucose (Misc Panel) 253H 05/01/17 16:58: Bedside Glucose (Misc Panel) 271H 05/01/17 21:05: Bedside Glucose (Misc Panel) 290H 05/02/17 04:24: Immature Granulocyte % (Auto) 0.2H, White Blood Count 4.4, Red Blood Count 3.72L , Hemoglobin 11.9L, Hematocrit 34.3L, Mean Corpuscular Volume 92.2, Mean Corpuscular Hemoglobin 32.0, Mean Corpuscular Hemoglobin Concent 34.7, Red Cell Distribution Width 11.8, Platelet Count 68L, Neutrophils (%) (Auto) 61.9, Lymphocytes (%) (Auto) 27.2, Monocytes (%) (Auto) 7.8H, Eosinophils (%) (Auto) 2.7, Basophils (%) (Auto) 0.2, Neutrophils # (Auto) 2.7, Lymphocytes # (Auto) 1.2L, Monocytes # (Auto) 0.3, Eosinophils # (Auto) 0.1, Basophils # (Auto) 0.0, Immature Granulocyte # (Auto) 0.0, Nucleated Red Blood Cells % (auto) 0.0, Immature Platelet Fraction 7.0, Anion Gap 9, Glomerular Filtration Rate > 60.0, Blood Urea Nitrogen 14, Creatinine 0.67L, Sodium Level 140, Potassium Level 4.4 , Chloride Level 107, Carbon Dioxide Level 24, Calcium Level 7.5L, Aspartate Amino Transf (AST/SGOT) 92H, Alanine Aminotransferase (ALT/SGPT) 54, Alkaline Phosphatase 79, Total Bilirubin 1.3H, Total Protein 4.5L, Albumin 2.2L, Magnesium Level 1.8, Albumin/Globulin Ratio 0.96L 05/02/17 11:21: Bedside Glucose (Misc Panel) 317H CBC/BMP Laboratory Tests 05/02/17 04:24 Red Blood Count 3.72 L, Mean Corpuscular Volume 92.2, Mean Corpuscular Hemoglobin 32.0, Mean Corpuscular Hemoglobin Concent 34.7, Red Cell Distribution Width 11.8, Neutrophils (%) (Auto) 61.9, Lymphocytes (%) (Auto) 27.2, Monocytes (%) (Auto) 7.8 H, Eosinophils (%) (Auto) 2.7, Basophils (%) ( Auto) 0.2, Neutrophils # (Auto) 2.7, Lymphocytes # (Auto) 1.2 L, Monocytes # ( Auto) 0.3, Eosinophils # (Auto) 0.1, Basophils # (Auto) 0.0, Calcium Level 7.5 L , Aspartate Amino Transf (AST/SGOT) 92 H, Alanine Aminotransferase (ALT/SGPT) 54 , Alkaline Phosphatase 79, Total Bilirubin 1.3 H, Total Protein 4.5 L, Albumin 2.2 L Microbiology Microbiology 04/28/17 Blood Culture - Preliminary, Resulted No Growth after 72 hours. All specime... 04/28/17 Blood Culture - Preliminary, Resulted No Growth after 72 hours. All specime... 04/28/17 Urine Culture - Final, Complete Luis Antonio Madden M.D. May 02, 2017 12:24
--- NOTE | 2017-05-02 12:29 | IPN ---
DATE: 05/02/2017 Mr. Elia Oliveira was seen this morning, he was sitting in bed in no acute distress appearing to be now alert and awake and oriented. He denies any chest pain and there is no shortness of breath, orthopnea, paroxysmal nocturnal dyspnea. He denies palpitations. There is no report of bleeding. He was initially seen on 04/30/2017 after being admitted on 04/28/2017 with diabetic ketoacidosis (DKA) and altered mental status. His serum troponin was mildly elevated. He has a history of hyperlipidemia, diabetes mellitus and smoking at times. There is no prior history of coronary artery disease, myocardial infarction, congestive heart failure, significant valvular heart disease, atrial fibrillation. He denies hypertension. He underwent an echocardiogram and it revealed a normal global left ventricular systolic function, no significant valvular heart disease. On physical examination, the patient is alert and oriented, in no acute distress and his vital signs this morning revealed a blood pressure of 119/77, with a pulse of 97, respiration is 18 and his maximum temperature is 98.2 degrees Fahrenheit with an oxygen saturation 100% on room air. For 04/30/2017, he had a negative fluid balance of 1.4 liters and yesterday 05/01/2017, fluid balance was 13 mL positive. Examination of the head: Atraumatic. Neck is supple. No jugular venous distention appreciated. The lungs reveal minimal fine crackles at the bases, but no wheezing. The heart examination revealed normal S1, S2 without gallops. The point of maximum impact (PMI) is not displaced. There was no rub. I could not appreciate any murmurs. Abdomen is soft. Extremity revealed no pedal edema. Neurological examination was limited but the patient was moving all of his extremities while in bed. LABS: BMP done today revealed a sodium 140, potassium 4.4, chloride 107, CO2 24, BUN 14, creatinine 0.67, GFR more than 60 and fasting glucose 237 with a calcium 7.5. Serum magnesium 1.8. Total bilirubin 1.3 with an AST 92, ALT 54, alkaline phosphatase 79, total protein 4.5, albumin 2.2. CBC revealed a WBC 4.4, hemoglobin 11.9, hematocrit 34.3 and platelets 68,000. Abdominal ultrasound on 04/30/2017 was negative for hydronephrosis, calculus, mass or cyst. A small right pleural effusion incidentally was identified. Abdomen and pelvis CT on 04/29/2017 revealed pleural effusions, no pericardial effusion. Small hiatal hernia. Degenerative changes in the bones, otherwise unremarkable. EEG on 04/30/2017 revealed nonspecific diffuse stable dysfunction as seen in encephalopathy. Electrocardiogram on 04/30/2017 revealed normal sinus rhythm and incomplete right bundle branch block. Mr. Elia Oliveira seems to be stable from a cardiac point of view. He has multiple risk factors for coronary artery disease and the patient might benefit from further cardiac workup. Today, he was started on a baby aspirin daily, enteric coated. I will check is lipid profile then further recommendations will be given. In view of a history of diabetes mellitus, I will recommend a small dose of ramipril/Altace 1.25 mg by mouth daily for kidney protection but this can be done as an outpatient. His cardiac condition seems to be stable and it seems that he has responded to the treatment of his DKA and he is out of the encephalopathy. He will need to be more compliant with treatment and followup with his physicians when discharged. Please do not hesitate to call for any questions.
[2017-05-02] MEDS: PANTOPRAZOLE 40MG INJ (PROTONIX) (C9113) IV SCH (20:28)
[2017-05-03] VITALS (7 sets, daily range): BP systolic 102–136; BP diastolic 56–74
[2017-05-03 05:12] LABS: BASO % 0.4 % (0.0-1.0); EOS # 0.2 10^3/uL (0.0-0.50); IMMATURE GRANULOCYTE % 0.8 % (0-0); LYMPH # 1.4 10^3/uL (1.5-4.5); LYMPH % 28.7 % (24.0-44.0); MEAN CORPUSCULAR HEMOGLOBIN 31.8 pg (27.0-33.0); MEAN CORPUSCULAR VOLUME 90.8 fl (80.0-96.0); MONO # 0.5 10^3/uL (0.0-0.8); MONO % 9.7 % (0.0-5.0); NEUTROPHILS # 2.7 10^3/uL (1.8-7.7); NEUTROPHILS % 56.4 % (36.0-66.0); PLATELET COUNT, AUTOMATED 114 10^3/uL (150-450); RED CELL DISTRIBUTION WIDTH 11.5 % (11.5-14.5); WHITE BLOOD COUNT 4.7 10^3/uL (4.0-10.0)
[2017-05-03 05:34] LABS: ALBUMIN 2.3 GM/DL (3.2-5.2); ALBUMIN/GLOBULIN RATIO 0.74 (1.00-1.93); ALKALINE PHOSPHATASE 87 U/L (45-117); ALT/SGPT 44 U/L (12-78); ANION GAP 13 MEQ/L (8-16); AST/SGOT 32 U/L (7-37); BILIRUBIN,TOTAL 0.7 MG/DL (0.2-1.0); BLOOD UREA NITROGEN 19 MG/DL (7-18); CALCIUM LEVEL 8.3 MG/DL (8.5-10.1); CARBON DIOXIDE LEVEL 19 MEQ/L (21-32); CHLORIDE LEVEL 104 MEQ/L (98-107); CHOLESTEROL LEVEL 126 MG/DL (<200); CREATININE FOR GFR 0.75 MG/DL (0.70-1.30); GLOMERULAR FILTRATION RATE > 60.0 (>56); GLUCOSE, FASTING 288 MG/DL (70-105); MAGNESIUM LEVEL 1.9 MG/DL (1.8-2.4); POTASSIUM SERUM 4.6 MEQ/L (3.5-5.1); SODIUM LEVEL 136 MEQ/L (136-145); TOTAL PROTEIN 5.4 GM/DL (6.4-8.2); TRIGLYCERIDES LEVEL 122 MG/DL (<150)
[2017-05-03] MEDS: SENOKOT S TAB PO SCH ×2 (07:55→21:46)
[2017-05-03] MEDS: LEVEMIR (INSULIN DETEMIR) 1 UNITS/0.01ML SC SCH (07:55)
[2017-05-03] MEDS: HumaLOG INSULIN (NovoLOG) PER UNIT SC SCH ×4 (07:55→20:33)
[2017-05-03] MEDS: NICOTINE 14 MG/24 HR TRANSDERMAL TD SCH (07:55)
--- NOTE | 2017-05-03 09:02 | IPNPDOC ---
Subjective Date Seen The patient was seen on 05/03/17. Subjective Chief Complaint/HPI The patient is a 57-year-old male admitted with a reason for visit of Diabetic Ketoacidoses. Events since last encounter Patient seen at bedside this morning. He reports being comfortable. Denies any changes in mental status. He continues to eat well, and is currently on Levemir and SSI. Patient's insulin pump will not be restarted, patient will follow-up with endocrine as outpatient. Patient was seen by cardiology yesterday for elevated troponins. Constitutional: Denies: Chills, Fever, Night Sweats Pulmonary: Denies: Dyspnea, Cough Cardiovascular: Denies: Chest Pain, Palpitations, Orthopnea, Paroxysmal Noc. Dyspnea, Lt Headedness Gastrointestinal: Denies: Nausea, Vomiting, Abdominal Pain, Diarrhea, Constipation Genitourinary: Denies: Dysuria, Frequency, Incontinence, Retention Endocrine: Denies: Polydipsia, Polyphagia, Polyuria Objective Physical Examination General Exam: Positive: No Acute Distress, Other (resting comfortably, non- verbal), Negative: Alert ENT Exam: Positive: Atraumatic, Mucous membr. moist/pink, Pharynx Normal Neck Exam: Positive: Supple, Negative: JVD, thyromegaly Chest Exam: Positive: Clear to auscultation, Normal air movement Heart Exam: Positive: Rate Normal, Regular Rhythm, Normal S1, Normal S2, Negative: Murmurs, Rubs Telemetry: Positive: No significant arrhythmia Abdomen Exam: Positive: Normal bowel sounds, Soft, Negative: Tenderness, Hepatospenomegaly Extremity Exam: Negative: Edema Skin Exam: Positive: Nl turgor and temperature, Negative: Rash, Breakdown Psych Exam: Negative: Oriented x 3 Assessment /Plan Problems (1) Tremor Problem Text: past dx of cervical dystonia by Neurology 05/03 safe for dc by PT plan MRI on 05/04 AM 04/29 CT head NAD chronic BUE/head intention tremor, worse when fatigued-favor essential (2) T1DM (type 1 diabetes mellitus) Status: Chronic Problem Text: 05/03 AC BG mid-high 100s s hypos baseline on MT 723 insulin pump c lispro insulin managed by Dr. 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 and patient feels that he did indeed bolus "a few" times p that) 05/02 AC BG mid-high 200s on detemir 20 c SSHI; therefore, increased to 24 for 05/03 given advancing diet-dc murray, CVC, mobilize, changed to PCU status (3) Thrombocytopenia Status: Acute Problem Text: 05/03 114 05/02 68 (82)-held asa 81 05/01 heparin stopped 04/28 237K 05/02 HIT Ab P 05/01 normal RUQ US (4) DKA (diabetic ketoacidoses) Status: Resolved Response to Treatment: Improving Problem Text: resolved (5) Metabolic encephalopathy Status: Acute Problem Text: resolved-favor 2 DKA (6) Alcohol abuse Status: Acute Problem Text: No s/s withdrawal Encouraged to stay off/AA as outpatient CIWA protocol (7) Elevated troponin Status: Acute Problem Text: multiple CADRF-fair controlled T1DM, nicotine use BP will not support ACEI/BB 05/03 lipids 74/28/122-started HI statin peak T-I 2.5 04/28-cw NSTEMI 04/29 1.4 04/28 TTE EF 70% no valvular d/o-plan outpx NST (as per [facility] consult 04/30) Plan/VTE VTE Prophylaxis Ordered?: No (INR 1.33 on admission, HOLD on anti-coag until repeat INR TEDS/SCDs) VS, I&O, 24H, Fishbone Vital Signs/I&O Vital Signs Date Time Temp Pulse Resp B/P (MAP) Pulse Ox O2 Delivery O2 Flow Rate FiO2 05/03/17 08:00 96.8 100 17 124/72 (89) 96 Room Air 04/30/17 20:00 2.0 Laboratory Data 24H LABS Laboratory Tests 2 05/02/17 11:21: Bedside Glucose (Misc Panel) 317H 05/02/17 13:32: 05/02/17 16:53: Bedside Glucose (Misc Panel) 178H 05/02/17 20:27: Bedside Glucose (Misc Panel) 224H 05/03/17 04:50: Immature Granulocyte % (Auto) 0.8H, White Blood Count 4.7, Red Blood Count 4.03L , Hemoglobin 12.8L, Hematocrit 36.6L, Mean Corpuscular Volume 90.8, Mean Corpuscular Hemoglobin 31.8, Mean Corpuscular Hemoglobin Concent 35.0, Red Cell Distribution Width 11.5, Platelet Count 114L, Neutrophils (%) (Auto) 56.4, Lymphocytes (%) (Auto) 28.7, Monocytes (%) (Auto) 9.7H, Eosinophils (%) (Auto) 4.0H, Basophils (%) (Auto) 0.4, Neutrophils # (Auto) 2.7, Lymphocytes # (Auto) 1.4L, Monocytes # (Auto) 0.5, Eosinophils # (Auto) 0.2, Basophils # (Auto) 0.0, Immature Granulocyte # (Auto) 0.0, Nucleated Red Blood Cells % (auto) 0.0, Anion Gap 13, Glomerular Filtration Rate > 60.0, Blood Urea Nitrogen 19H, Creatinine 0.75, Sodium Level 136, Potassium Level 4.6, Chloride Level 104, Carbon Dioxide Level 19L, Calcium Level 8.3L, Aspartate Amino Transf (AST/SGOT) 32, Alanine Aminotransferase (ALT/SGPT) 44, Alkaline Phosphatase 87, Total Bilirubin 0.7, Triglycerides Level 122, LDL Cholesterol 73.6, Total Protein 5.4L , Albumin 2.3L, Magnesium Level 1.9, Albumin/Globulin Ratio 0.74L, Total Cholesterol 126, Non-HDL Cholesterol (LDL + VLDL) 98, Total HDL Cholesterol 28L , Cholesterol/HDL Ratio 4.500 CBC/BMP Laboratory Tests 05/03/17 04:50 Red Blood Count 4.03 L, Mean Corpuscular Volume 90.8, Mean Corpuscular Hemoglobin 31.8, Mean Corpuscular Hemoglobin Concent 35.0, Red Cell Distribution Width 11.5, Neutrophils (%) (Auto) 56.4, Lymphocytes (%) (Auto) 28.7, Monocytes (%) (Auto) 9.7 H, Eosinophils (%) (Auto) 4.0 H, Basophils (%) ( Auto) 0.4, Neutrophils # (Auto) 2.7, Lymphocytes # (Auto) 1.4 L, Monocytes # ( Auto) 0.5, Eosinophils # (Auto) 0.2, Basophils # (Auto) 0.0, Calcium Level 8.3 L , Aspartate Amino Transf (AST/SGOT) 32, Alanine Aminotransferase (ALT/SGPT) 44, Alkaline Phosphatase 87, Total Bilirubin 0.7, Triglycerides Level 122, LDL Cholesterol 73.6, Total Protein 5.4 L, Albumin 2.3 L Microbiology Microbiology 04/28/17 Blood Culture - Preliminary, Resulted No Growth after 72 hours. All specime... 04/28/17 Blood Culture - Preliminary, Resulted No Growth after 72 hours. All specime... 04/28/17 Urine Culture - Final, Complete GME ATTESTATION GME ATTESTATION My preceptor for this patient encounter was physically present in the building during the encounter and was fully available. As needed, all aspects of the patient interview, examination, medical decision making process, and medical care plan development were reviewed and approved by the preceptor. Preceptor is aware and concurs with the plan as stated in the body of this note and will attest to such by his/her cosignature. JOSE SANTIZO DO May 03, 2017 09:02 Luis Antonio Madden M.D. May 03, 2017 14:13
--- NOTE | 2017-05-03 15:34 | IPN ---
DATE: 05/02/2017 SUBJECTIVE: The patient is seen this morning at the bedside in the intensive care unit. He is awake, alert, eating, in no acute distress. There are several family members present at the bedside. The patient is mentating well this morning, oriented, conversational. He denies any prior history of diabetic ketoacidosis (DKA) and denies any known issue with his insulin pump previously. His serum sodium is stable at 140 this morning. REVIEW OF SYSTEMS: Negative for confusion, fevers, chills, chest pain, palpitations, shortness of breath, nausea, vomiting, diarrhea, edema, or headache. Remainder of review of systems is negative. VITAL SIGNS: Temperature 98.1, pulse 91, respiratory rate 18, blood pressure 116/69, saturating 95% to 100% on room air. INTAKE AND OUTPUT: Oral intake yesterday 1430, oral intake today 1710. Urine output yesterday 3540, in fairly equivalent fluid balance. PHYSICAL EXAMINATION: The patient is awake, alert, oriented, conversational at the bedside, eating, in no acute distress. HEAD AND NECK: Extraocular muscles are intact. Neck is supple. The mucous membranes are moist. There is no jugular venous distention. EARS, NOSE, AND THROAT: Unremarkable. LUNGS: He is comfortable on room air. Air entry is symmetric. CARDIAC: S1, S2, 2+ radial pulses. There is no significant peripheral or dependent edema. ABDOMEN: Soft. NEUROLOGIC: The patient is appropriately interactive, conversational, oriented, able to give history. Per the family at the bedside, the patient is appropriate. He is moving all of his extremities in bed. PSYCHIATRIC: Appropriate mood and affect. LABORATORY DATA: White count 4.4, hemoglobin 11.9, platelets 68. Sodium 140, potassium 4.4, bicarbonate 24, BUN 14, creatinine 0.6, glucose 237, magnesium 1.8, corrected calcium 9, albumin 2.2. INPATIENT MEDICATIONS: I discontinued the patient's IV fluid. His insulin was adjusted per the primary team. He was started on a nicotine patch and his aspirin was held. Remainder of medications are unchanged from prior. PLAN: 1. Altered mentation, most likely due to his metabolic disturbances including diabetic ketoacidosis (DKA). His mentation has significantly improved. He is tolerating oral intake well, oriented, conversational. 2. Fluctuations in sodium. The patient's sodium has been stable for the past 48-72 hours. He is tolerating oral intake very well now. I will discontinue his IV fluids at this time and encourage him for oral hydration. 3. Diabetes with recent episode of DKA. The patient's blood sugars are currently in the 200s. He reports prior use of an insulin pump. He may well likely have experienced a pump malfunction that caused him to go into to DKA. He will followup with Dr. Baker as an outpatient. 4. The patient's electrolytes and renal function are stable at this time. His IV fluids are discontinued. He is encouraged for oral intake and oral hydration. Nephrology is signing off at this time. Please reconsult for any issues that arise.
[2017-05-03] MEDS: ROSUVASTATIN 10 MG TAB (CRESTOR) PO SCH (17:54)
[2017-05-03] MEDS: PANTOPRAZOLE 40MG INJ (PROTONIX) (C9113) IV SCH (21:46)
[2017-05-04] VITALS: BP 123/67
[2017-05-04 00:03] VITALS: BP 123/67
[2017-05-04 05:30] LABS: BASO % 0.3 % (0.0-1.0); EOS # 0.2 10^3/uL (0.0-0.50); EOS % 3.8 % (0.0-3.0); LYMPH % 33.6 % (24.0-44.0); MEAN CORPUSCULAR HEMOGLOBIN 31.4 pg (27.0-33.0); MEAN CORPUSCULAR HGB CONC 34.8 g/dl (32.0-36.5); MEAN CORPUSCULAR VOLUME 90.3 fl (80.0-96.0); MONO # 0.7 10^3/uL (0.0-0.8); MONO % 12.2 % (0.0-5.0); NEUTROPHILS # 2.9 10^3/uL (1.8-7.7); NEUTROPHILS % 49.1 % (36.0-66.0); PLATELET COUNT, AUTOMATED 194 10^3/uL (150-450); RED CELL DISTRIBUTION WIDTH 11.5 % (11.5-14.5); WHITE BLOOD COUNT 5.8 10^3/uL (4.0-10.0)
[2017-05-04 05:38] VITALS: BP 96/58
[2017-05-04 05:46] LABS: ALBUMIN 2.5 GM/DL (3.2-5.2); ALBUMIN/GLOBULIN RATIO 0.78 (1.00-1.93); ALKALINE PHOSPHATASE 84 U/L (45-117); ALT/SGPT 38 U/L (12-78); ANION GAP 10 MEQ/L (8-16); AST/SGOT 21 U/L (7-37); BILIRUBIN,TOTAL 0.7 MG/DL (0.2-1.0); BLOOD UREA NITROGEN 19 MG/DL (7-18); CALCIUM LEVEL 8.5 MG/DL (8.5-10.1); CARBON DIOXIDE LEVEL 21 MEQ/L (21-32); CHLORIDE LEVEL 103 MEQ/L (98-107); CREATININE FOR GFR 0.72 MG/DL (0.70-1.30); GLOMERULAR FILTRATION RATE > 60.0 (>56); GLUCOSE, FASTING 289 MG/DL (70-105); MAGNESIUM LEVEL 1.9 MG/DL (1.8-2.4); POTASSIUM SERUM 4.4 MEQ/L (3.5-5.1); SODIUM LEVEL 134 MEQ/L (136-145); TOTAL PROTEIN 5.7 GM/DL (6.4-8.2)
[2017-05-04 07:51] VITALS: BP 117/65
[2017-05-04 08:00] VITALS: BP 124/72
[2017-05-04] MEDS: LEVEMIR (INSULIN DETEMIR) 1 UNITS/0.01ML SC SCH (08:06)
[2017-05-04] MEDS: SENOKOT S TAB PO SCH (08:07)
[2017-05-04] MEDS: ROSUVASTATIN 10 MG TAB (CRESTOR) PO SCH (08:07)
[2017-05-04] MEDS: HumaLOG INSULIN (NovoLOG) PER UNIT SC SCH ×2 (08:07→12:00)
[2017-05-04] MEDS ORDERED: PROHANCE 279.3MG/ML 5ML VIAL (A9576) As Ordered ONE (08:45)
[2017-05-04] MEDS ORDERED: PROHANCE 279.3MG/ML 15ML VIAL (A9576) As Ordered ONE (08:45)
[2017-05-04] MEDS: NICOTINE 14 MG/24 HR TRANSDERMAL TD SCH (09:00)
--- NOTE | 2017-05-04 11:06 | REP ---
MR BRAIN WITHOUT AND WITH CONTRAST: HISTORY: Ataxia. CONTRAST: ProHance 17 mL. COMPARISON: 09/09/2012 Several punctate areas of increased signal intensity on T2-weighted images are present in the subcortical white matter. This represents small vessel ischemic disease. There is no intraparenchymal hemorrhage, infarct, mass, or midline shift. There is no abnormal enhancement. The ventricular system is normal in appearance. There is no extracerebral collection. Mucosal thickening is present in the maxillary sinuses. IMPRESSION: Minimal small vessel ischemic disease. Signed by Davey Gomez MD 05/04/2017 11:24 A
[2017-05-04 12:30] VITALS: BP 129/74
[2017-05-04] MEDS ORDERED: CRES10TA32 PO (14:29)
[2017-05-04] MEDS ORDERED: ADVO1MIS3 XX (14:29)
[2017-05-04] MEDS ORDERED: INSUDET SC (14:29)
[2017-05-04] MEDS ORDERED: INSUHUMDS SC ×2 (14:29)
--- NOTE | 2017-05-04 16:14 | DS.PDOC ---
Discharge Summary General Date of Admission Apr 28, 2017 at 12:40 Date of Discharge 05/04/17 Discharge Summary Consults: Cardiology (Dr. Maravilla), nephrology (Dr. Cooper) Discharge diagnosis: Diabetic ketoacidosis Secondary diagnosis: Tremor, thrombocytopenia, metabolic encephalopathy, alcohol abuse, elevated troponin Hospital course: Patient was admitted on 04/28/17 with an episode of acute DKA, admitted to intensive care unit. On admission he was started on insulin drip. He had elevated troponins, elevated creatinine on admission, were likely secondary to episode of DKA. During hospitalization patient was noted to have tremor in his hands, tremor was further evaluated with MRI which did not show any acute pathology. At time of discharge tremor is believed to be essential tremor. Due to history of alcohol abuse on admission he was placed on CIWA protocol. During hospitalization there was concern that episode of DKA was provoked secondary to insulin pump failure. Due to concern for pump failure it was recommended that he be discharged on long-acting insulin with sliding scale insulin. On 05/03/17 he was cleared by physical therapy for discharge. Remainder of patient's hospitalization was uncomplicated. Progress note on date of discharge: Subjective: Patient states that he has been doing good. He does not have any acute concerns today. He states that his sugars have been good, ranging in the mid 100s. He denies any polyuria, polydipsia, fevers, chills, sweats, chest pain/pressure, shortness of breath or difficulty breathing. Objective: Vitals: Temperature 97.3, pulse 106, respiratory rate 20, blood pressure 129/74 , pulse ox 96% on room air Gen.: Patient awake, alert and oriented, verbal and able to answer questions appropriately. Patient does not appear to be in any acute distress Heart: Regular rate and rhythm, normal S1-S2. No murmurs, rubs, clicks or gallops Lungs: Clear to auscultation bilaterally. No wheezes, rales or rhonchi Abdomen: Active bowel sounds, soft, nontender, no masses to palpation Extremities: Mild tremor of hands with activity Labs: CBC: White blood cells 5.8, hemoglobin and hematocrit 13.3/38.2, platelets 194 Chemistry: Sodium 134, potassium 4.4, chloride 103, carbon dioxide 21, BUN 19, creatinine 0.7 to, glucose 289, calcium 8.5 and Magnesium 1.9 Liver profile: AST 21, ALT 38, alkaline phosphatase 84, total protein 5.7, albumin 2.5, total bilirubin 0.7 Assessment: Patient is a 57-year-old male admitted for episode of DKA. He is currently on a stable insulin regimen with long-acting and sliding scale insulin. At this time he is safe to be discharged home. Disposition: Discharge patient to home Follow-up: Follow-up with endocrinology tomorrow for further interrogation of insulin pump. Follow-up with primary care provider in 5-7 days. Activity: As tolerated Diet: Consistent carbohydrate Medications on discharge: Levemir insulin 24 units subcutaneously daily Humalog insulin with meals and at bedtime sliding scale Crestor 20 mg by mouth daily Will require out-patient follow up: Results of Heparin-induced antibodies lab Cc: Dr. Juarez, Dr. Fatimah Baker Time spent on discharge: Greater than 30 minutes Discharge Medications Scheduled Insulin Detemir (Levemir) 1 Units/0.01 Ml Susp, 24 UNITS SC DAILY Insulin Human Lispro (Humalog) 1 Units/0.01 Ml Inj, 0 UNITS SC AC Insulin Human Lispro (Humalog) 1 Units/0.01 Ml Inj, 0 UNITS SC QHS Rosuvastatin (Crestor) 10 Mg Tab, 20 MG PO DAILY Allergies Coded Allergies: Unobtainable (Unverified , 04/28/17) Altered Mental Status GME ATTESTATION GME ATTESTATION My faculty preceptor for this patient encounter was physically present during the encounter and was fully available. ~All aspects of the patient interview, examination, medical decision making process, and medical care plan development were reviewed and approved by the faculty preceptor. The faculty preceptor is aware and concurs with the plan as stated in the body of this note and will attest to such by his/her co-signature. LASHAY POWELL DO May 04, 2017 16:14
== END 2017-05-04 16:37 | disposition home or self-care (01) | DRG 420 ==
LOC: EDBD 09:44 → M ED 09:44 → M ED INP 12:40 → M ICU 15:09 → M PCU 05-02 18:00
PROVIDERS: ADMIT Internal Medicine; ATTEND Family Medicine
PROC: 02HV33Z Insertion of Infusion Device into Superior Vena Cava, Percutaneous Approach (ICD-10-PCS; principal; 2017-04-28)
DX: E10.10 Type 1 diabetes mellitus with ketoacidosis without coma (principal); I21.4 Non-ST elevation (NSTEMI) myocardial infarction; G93.41 Metabolic encephalopathy; N17.9 Acute kidney failure, unspecified; E87.0 Hyperosmolality and hypernatremia; M62.82 Rhabdomyolysis; D69.6 Thrombocytopenia, unspecified; I48.91 Unspecified atrial fibrillation; E87.1 Hypo-osmolality and hyponatremia; I45.10 Unspecified right bundle-branch block; F10.10 Alcohol abuse, uncomplicated; G47.33 Obstructive sleep apnea (adult) (pediatric); E87.6 Hypokalemia; Z87.891 Personal history of nicotine dependence; Z96.41 Presence of insulin pump (external) (internal); Z79.4 Long term (current) use of insulin; Z79.899 Other long term (current) drug therapy

== ENCOUNTER → 2017-05-29 | Outpatient (REF) | payer BC ==
[~2017-05-29] MED LIST: ADVO1MIS3 XX; CRES10TA32 PO; INSUDET SC; INSUHUMDS SC; PATIENT COMMENT
== END ==
LOC: M SFHCADAM 09:20
PROVIDERS: ATTEND Family Medicine
DX: E10.65 Type 1 diabetes mellitus with hyperglycemia (principal)

== ENCOUNTER 2019-04-09 19:24 | Emergency (ER) | payer OTHER ==
[~2019-04-09] VITALS: Ht 177.8 cm; Wt 113.6 kg
[~2019-04-09 19:24] MED LIST changes: +CRES10TA PO; -CRES10TA32 PO
[2019-04-09 20:05] LABS: HEMATOCRIT 49.4 % (42.0-52.0); HEMOGLOBIN 16.5 g/dl (13.5-17.5); MEAN CORPUSCULAR HEMOGLOBIN 32.2 pg (27.0-33.0); MEAN CORPUSCULAR HGB CONC 33.4 g/dl (32.0-36.5); MEAN CORPUSCULAR VOLUME 96.3 fl (80.0-96.0); PLATELET COUNT, AUTOMATED 215 10^3/uL (150-450); RED BLOOD COUNT 5.13 10^6/uL (4.30-6.10); WHITE BLOOD COUNT 7.1 10^3/uL (4.0-10.0)
[2019-04-09 20:43] LABS: ACETAMINOPHEN LEVEL < 2.0 UG/ML (10.0-30.0); ALBUMIN 3.3 GM/DL (3.2-5.2); ALT/SGPT 23 U/L (12-78); BILIRUBIN,DIRECT < 0.1 MG/DL (0.0-0.2); BILIRUBIN,TOTAL 0.3 MG/DL (0.2-1.0); BLOOD UREA NITROGEN 8 MG/DL (7-18); CALCIUM LEVEL 8.1 MG/DL (8.5-10.1); CARBON DIOXIDE LEVEL 22 MEQ/L (21-32); CHLORIDE LEVEL 106 MEQ/L (98-107); ETHYL ALCOHOL (ETHANOL) 0.337 % (0.000-0.010); GLOMERULAR FILTRATION RATE > 60.0 (>56); GLUCOSE, FASTING 231 MG/DL (70-100); POTASSIUM SERUM 4.7 MEQ/L (3.5-5.1); SALICYLATE LEVEL 2.7 MG/DL (5.0-30.0); SODIUM LEVEL 138 MEQ/L (136-145); THYROID STIMULATING HORMONE 0.739 uIU/ML (0.358-3.740); TOTAL PROTEIN 6.6 GM/DL (6.4-8.2)
[2019-04-09] MEDS ORDERED: ADACEL/BOOSTRIX VACCINE (DIPHTH/PERTUSS/ACELL/TETANUS)0.5ML SYR (90715) IM ONE (21:00)
--- NOTE | 2019-04-09 21:27 | REPVR ---
PROCEDURE INFORMATION: Exam: CT Head Without Contrast Exam date and time: 04/09/2019 8:52 PM Clinical history: 59 years old, male; Injury or trauma; Fall; Initial encounter; Blunt trauma (contusions or hematomas) TECHNIQUE: Imaging protocol: Computed tomography of the head without contrast. Radiation optimization: All CT scans at this facility use at least one of these dose optimization techniques: automated exposure control; mA and/or kV adjustment per patient size (includes targeted exams where dose is matched to clinical indication); or iterative reconstruction. COMPARISON: CT Head without contrast 04/29/2017 12:00 PM FINDINGS: Brain: Global cerebral atrophy is consistent with patient's age. Decreased attenuation within the white matter tracts of both cerebral hemispheres is nonspecific but typically seen with small vessel disease/chronic white matter ischemic changes of aging. No intracranial hemorrhage or mass effect. Ventricles: Unremarkable. No ventriculomegaly. Bones/joints: Unremarkable. No acute fracture. Sinuses: Opacification and mucosal thickening of multiple ethmoid sinuses bilaterally. Mild mucosal thickening of the left sphenoid sinus. No paranasal sinus air fluid level. Mastoid air cells: Visualized mastoid air cells are well aerated. Soft tissues: Unremarkable. IMPRESSION: No acute intracranial abnormality. Electronically signed by: Pool Obando On 04/09/2019 21:27:13 PM
--- NOTE | 2019-04-09 21:30 | REPVR ---
PROCEDURE INFORMATION: Exam: CT Cervical Spine Without Contrast Exam date and time: 04/09/2019 8:52 PM Clinical history: 59 years old, male; Injury or trauma; Fall; Initial encounter; Blunt trauma TECHNIQUE: Imaging protocol: Computed tomography images of the cervical spine without contrast. Radiation optimization: All CT scans at this facility use at least one of these dose optimization techniques: automated exposure control; mA and/or kV adjustment per patient size (includes targeted exams where dose is matched to clinical indication); or iterative reconstruction. COMPARISON: No relevant prior studies available. FINDINGS: Vertebrae: No fracture or subluxation. Discs/Spinal canal/Neural foramina: Degenerative disc disease and facet arthrosis throughout the cervical spine. The findings are most severe at C4-C5 and C5-C6. Mild neural foraminal bony encroachment on the right at C3-C4 and bilaterally at C4-C5. Moderate/severe neural foraminal bony encroachment on the right at C5-C6. Soft tissues: Unremarkable. Lungs: The lung apices are not visualized on this examination. IMPRESSION: No fracture. Electronically signed by: Pool Obando On 04/09/2019 21:30:43 PM
--- NOTE | 2019-04-09 21:38 | REPVR ---
PROCEDURE INFORMATION: Exam: CT Maxillofacial Without Contrast Exam date and time: 04/09/2019 8:52 PM Clinical history: 59 years old, male; Injury or trauma; Fall; Initial encounter; Blunt trauma (contusions or hematomas); Forehead TECHNIQUE: Imaging protocol: Computed tomography images of the face without contrast. Radiation optimization: All CT scans at this facility use at least one of these dose optimization techniques: automated exposure control; mA and/or kV adjustment per patient size (includes targeted exams where dose is matched to clinical indication); or iterative reconstruction. COMPARISON: CT BRAIN LAB SINUSES 10/12/2012 11:07 AM FINDINGS: Orbits: The ocular globes and retro-orbital fat are unremarkable. Sinuses: Minimal mucosal thickening of the right and left frontal and sphenoid sinuses. Small mucus retention cyst within the left maxillary sinus. No fluid levels identified within paranasal sinuses. Findings suggestive of bilateral maxillary sinus surgery, versus large accessory ostia. Bones/joints: Degenerative arthrosis of both upper mandibular joints. Fracture of the tip of the anterior nasal spine is likely unchanged compared to a prior study performed on 2012. Correlate clinically with location of patient's pain. Nasal cavity: Lobulated surface contour to the right inferior nasal turbinate, suspicious for nasal polyposis. Soft tissues: Mild swelling of the right forehead subcutaneous tissues, consistent with soft tissue contusion. There is a 2 mm diameter focal radiodensity within the region of the forehead subcutaneous tissue swelling on axial images 3 and 4 of series 406 suspicious for tiny foreign body material. Correlate with penetrating skin injury. IMPRESSION: 1. Soft tissue contusion of the right forehead subcutaneous tissues. 2. Possible foreign body material measuring 2 mm within the swollen right forehead subcutaneous tissues. 3. Paranasal sinus inflammatory disease. 4. Fracture of the anterior nasal spine, likely old. Correlate with location of patient's pain. Electronically signed by: Pool Obando On 04/09/2019 21:37:54 PM
[2019-04-10 05:13] LABS: AMPHETAMINES LEVEL URINE NEGATIVE (NEGATIVE); BARBITURATES URINE NEGATIVE (NEGATIVE); BENZODIAZEPINES URINE NEGATIVE (NEGATIVE); CANNABINOIDS URINE NEGATIVE (NEGATIVE); COCAINE METABOLITE URINE NEGATIVE (NEGATIVE); METHADONE URINE NEGATIVE (NEGATIVE); OPIATES URINE NEGATIVE (NEGATIVE); PHENCYCLIDINE URINE NEGATIVE (NEGATIVE)
[2019-04-10] MEDS ORDERED: LORazepam 2 MG TAB PO PRN (05:15)
[2019-04-10] MEDS ORDERED: NOVOINJ SC (07:26)
[2019-04-10] MEDS ORDERED: ATOR1TAB21 PO (07:26)
[2019-04-10] MEDS ORDERED: ASPI81TA85 PO (07:26)
[2019-04-10] MEDS ORDERED: HumaLOG INSULIN (NovoLOG) PER UNIT SC ONE (08:15)
[2019-04-10] MEDS ORDERED: MULTIVITAMINS/MINERALS THERAP 1 TAB PO SCH (09:00)
[2019-04-10] MEDS ORDERED: THIAMINE 100 MG TAB PO SCH (09:00)
[2019-04-10] MEDS ORDERED: FOLIC ACID 1 MG TAB PO SCH (09:00)
[2019-04-10 13:08] VITALS: BP 152/79
--- NOTE | 2019-04-12 18:46 | ED PDOC ---
Post-Departure Follow-Up dr xionged formal report of ct max fac for fu. pt also sent certified letter re formal report. pt w retained fb and nasal fx mlg Pari Bob MD Apr 12, 2019 18:46
== END 2019-04-10 13:15 | disposition home or self-care (01) ==
LOC: M ED 19:24
DX: S00.81XA Abrasion of other part of head, initial encounter (principal); S00.83XA Contusion of other part of head, initial encounter; W18.39XA Other fall on same level, initial encounter; E11.9 Type 2 diabetes mellitus without complications; F10.120 Alcohol abuse with intoxication, uncomplicated; Z79.4 Long term (current) use of insulin; Z79.82 Long term (current) use of aspirin; Z79.899 Other long term (current) drug therapy
CPT/HCPCS: 70450; 70486; 72125; 80048; 80076; 80307; 84443; 85027; 90471; 90715; 99285; G0480

== ENCOUNTER → 2019-12-19 | Outpatient (CLI) | payer OTHER ==
[~2019-12-19] MED LIST changes: +ASPI81TA85 PO; +ATOR1TAB21 PO; +NOVOINJ SC
--- NOTE | 2019-12-19 11:13 | REP ---
Right foot series: Four views. History: Pain in the right foot. Findings: There are nondisplaced fractures involving the proximal ends of the second third and fourth metatarsals. There is overall normal mineralization. The there is no discernible associated soft-tissue swelling. Achilles and plantar calcaneal spurs are noted. No other abnormality. Impression: Nondisplaced fractures of the proximal metaphyses of the second, third, and fourth metatarsals. Electronically Signed by Kirill Cameron MD 12/19/2019 11:05 A
== END ==
LOC: M ADAMS 09:33
PROVIDERS: ATTEND Nurse Practitioner Family
DX: M79.671 Pain in right foot (principal)